=== PATIENT | female | born 1950 | race Caucasian/White ===

== ENCOUNTER 2019-03-12 17:31 | Observation (INO) ==
[2019-03-12] MEDS ORDERED: 0.9 % Sodium Chloride 1,000 ML IV ONE (18:16)
[2019-03-12 18:43] LABS: Bilirubin,Urine Small (Negative); Blood,Urine Large (Negative); Clarity,Urine Turbid (Clear); Glucose,Urine (UA) Normal (Normal); Ketones,Urine Trace mg/dL (Negative); Leukocyte Esterase,Urine Large (Negative); Nitrite,Urine Negative (Negative); PH,Urine 5.5 pH Units (5.0-8.0); Protein,Urine 100 mg/dL (Neg-Trace); Specific Gravity,Urine 1.025 (1.010-1.025); Urobilinogen,Urine Normal (Normal)
[2019-03-12 18:51] LABS: Color,Urine Light Yellow (Yellow)
[2019-03-12 18:54] LABS: RBC,Urine TNTC per hpf (0-3); WBC,Urine TNTC per hpf (0-3)
[2019-03-12 18:57] LABS: Bacteria,Urine Many per hpf (None-Few)
[2019-03-12] MEDS ORDERED: 0.9 % Sodium Chloride 500 ML ONE (19:01)
[2019-03-12 19:19] LABS: Basophils # 0.1 K/mcL (0.0-0.2); Basophils % 0.3 %; Hematocrit 43.1 % (35.3-44.9); Hemoglobin 13.3 g/dL (11.5-15.4); Lymphocytes # 0.8 K/mcL (0.6-4.6); Lymphocytes % 2.9 %; Mean Corpuscular HGB Conc 30.9 g/dL (31.6-35.5); Mean Corpuscular Hemoglobin 27.8 pg (28.0-33.3); Mean Corpuscular Volume 90.2 fL (83.0-100.0); Mean Platelet Volume 9.4 fL (9.4-12.4); Monocytes # 1.2 K/mcL (0.0-1.3); Monocytes % 4.6 %; Neutrophils # 24.3 K/mcL (1.6-8.9); Platelet Count 406 K/mcL (140-400); Red Blood Count 4.78 M/mcL (3.82-4.97); Red Cell Distribution Width 15.4 % (11.5-14.5); Segmented Neutrophils % 91.2 %; White Blood Count 26.6 K/mcL (4.3-11.1)
[2019-03-12 19:36] LABS: Platelet Estimate Increased (Normal)
[2019-03-12] MEDS ORDERED: cefTRIAXone 1,000 MG in 0.9 % Sodium Chloride Mini Bag 100 ML IVPB ONE (19:39)
[2019-03-12 19:40] LABS: Troponin I 0.03 ng/mL (< 0.04)
[2019-03-12 19:51] LABS: Albumin 3.3 g/dL (3.5-5.7); Albumin/Globulin Ratio 0.6 (1.1-2.2); Bilirubin,Total 0.3 mg/dL (0.3-1.0); Calcium 9.1 mg/dL (8.6-10.3); Globulin 5.2 g/dL (2.4-3.5); Total Protein 8.5 g/dL (6.4-8.9)
[2019-03-12] MEDS ORDERED: Ondansetron 4 MG/2 ML VIAL IVP PRN (21:23)
[2019-03-12] MEDS ORDERED: Naloxone 0.4 MG/ML INJ IVP PRN (21:23)
[2019-03-12] MEDS: 0.9 % Sodium Chloride 1,000 ML IVC SCH (22:18)
[2019-03-13] MEDS ORDERED: ALPRAZolam 1 MG TABLET PO ONE (02:09)
[2019-03-13] MEDS ORDERED: Acetaminophen 325 MG TABLET PO PRN (04:39)
[2019-03-13] MEDS: 0.9 % Sodium Chloride 1,000 ML IVC SCH (05:58)
[2019-03-13 07:49] LABS: Basophils # 0.1 K/mcL (0.0-0.2); Basophils % 0.3 %; Eosinophils % 0.1 %; Hematocrit 30.7 % (35.3-44.9); Hemoglobin 9.9 g/dL (11.5-15.4); Immature Granulocytes % 1.1 % (0-4); Lymphocytes % 4.5 %; Mean Corpuscular HGB Conc 32.2 g/dL (31.6-35.5); Mean Corpuscular Hemoglobin 27.7 pg (28.0-33.3); Mean Corpuscular Volume 85.8 fL (83.0-100.0); Mean Platelet Volume 9.6 fL (9.4-12.4); Monocytes # 1.1 K/mcL (0.0-1.3); Monocytes % 5.8 %; Neutrophils # 16.6 K/mcL (1.6-8.9); Platelet Count 371 K/mcL (140-400); Red Blood Count 3.58 M/mcL (3.82-4.97); Red Cell Distribution Width 15.3 % (11.5-14.5); Segmented Neutrophils % 88.2 %; White Blood Count 18.8 K/mcL (4.3-11.1)
[2019-03-13 07:50] LABS: Lymphocytes # 0.9 K/mcL (0.6-4.6)
[2019-03-13] MEDS ORDERED: 0.9 % Sodium Chloride 500 ML IV ONE (07:51)
[2019-03-13 08:05] LABS: Albumin 2.4 g/dL (3.5-5.7); Albumin/Globulin Ratio 0.6 (1.1-2.2); Bilirubin,Total 0.3 mg/dL (0.3-1.0); Calcium 7.9 mg/dL (8.6-10.3); Globulin 4.1 g/dL (2.4-3.5); Potassium 3.1 mEq/L (3.5-5.1); Total Protein 6.5 g/dL (6.4-8.9)
[2019-03-13] MEDS: ALPRAZolam 1 MG TABLET PO SCH ×2 (08:18→15:39)
[2019-03-13] MEDS: Gabapentin 100 MG CAPSULE PO SCH ×2 (08:18→15:39)
[2019-03-13] MEDS ORDERED: Sodium Bicarbonate 75 MEQ in D5% in 0.45% NACL 1,000 ML IVC SCH (11:15)
[2019-03-13 14:20] VITALS: BP 131/78
[2019-03-13] MEDS ORDERED: cefTRIAXone 1,000 MG in Water for inj. (sterile) 10 ML IVP SCH (19:00)
[2019-03-13] MEDS ORDERED: rOPINIRole 1 MG TABLET PO SCH (21:00)
== END 2019-03-13 17:30 | disposition critical access hospital (66) ==
LOC: EMEROOPIK 17:31 → INPPIK 17:31
PROVIDERS: ADMIT Family Medicine; ATTEND Family Medicine

== ENCOUNTER 2019-03-22 15:37 | Inpatient (IN) ==
[2019-03-22] MEDS ORDERED: DiphenhydraMINE CREAM 28.4 GM TUBE TP PRN (20:21)
[2019-03-22] MEDS: Amoxicillin 500 MG CAPSULE PO SCH (21:15)
[2019-03-22] MEDS: Gabapentin 300 MG CAPSULE PO SCH (21:15)
[2019-03-22] MEDS: ALPRAZolam 1 MG TABLET PO SCH (21:15)
[2019-03-22] MEDS: rOPINIRole 1 MG TABLET PO SCH (21:15)
[2019-03-23 06:49] LABS: Basophils % 0.4 %; Eosinophils # 0.3 K/mcL (0.0-0.6); Eosinophils % 2.7 %; Hematocrit 30.5 % (35.3-44.9); Hemoglobin 9.5 g/dL (11.5-15.4); Immature Granulocytes % 5.4 % (0-4); Lymphocytes # 1.4 K/mcL (0.6-4.6); Lymphocytes % 12.5 %; Mean Corpuscular HGB Conc 31.1 g/dL (31.6-35.5); Mean Corpuscular Hemoglobin 27.6 pg (28.0-33.3); Mean Corpuscular Volume 88.7 fL (83.0-100.0); Mean Platelet Volume 9.8 fL (9.4-12.4); Monocytes # 0.8 K/mcL (0.0-1.3); Monocytes % 7.4 %; Platelet Count 263 K/mcL (140-400); Red Blood Count 3.44 M/mcL (3.82-4.97); Red Cell Distribution Width 15.8 % (11.5-14.5); Segmented Neutrophils % 71.6 %; White Blood Count 11.2 K/mcL (4.3-11.1)
[2019-03-23 06:59] LABS: INR 1.2; Prothrombin Time 13.5 Seconds (9.4-12.1)
[2019-03-23 07:02] LABS: Activated Partial Thrombo Time 27.6 Seconds (26.0-36.0)
[2019-03-23 07:08] LABS: Calcium 7.9 mg/dL (8.6-10.3); Potassium 3.9 mEq/L (3.5-5.1)
[2019-03-23] MEDS: Gabapentin 300 MG CAPSULE PO SCH ×3 (09:35→20:47)
[2019-03-23] MEDS: Amoxicillin 500 MG CAPSULE PO SCH ×2 (09:40→20:46)
[2019-03-23] MEDS ORDERED: Acetaminophen 325 MG TABLET PO PRN (09:48)
[2019-03-23] MEDS: rOPINIRole 1 MG TABLET PO SCH (20:46)
[2019-03-23] MEDS: ALPRAZolam 1 MG TABLET PO SCH (20:46)
[2019-03-23] MEDS ORDERED: Furosemide 20 MG/2 ML VIAL IVP SCH (21:00)
[2019-03-24] MEDS: Gabapentin 300 MG CAPSULE PO SCH ×3 (08:57→20:17)
[2019-03-24] MEDS: Amoxicillin 500 MG CAPSULE PO SCH ×2 (09:16→20:17)
[2019-03-24] MEDS: Ondansetron ODT 4 MG TAB.RAPDIS SL PRN (09:16)
[2019-03-24] MEDS: rOPINIRole 1 MG TABLET PO SCH (20:17)
[2019-03-24] MEDS: ALPRAZolam 1 MG TABLET PO SCH (20:17)
[2019-03-25] MEDS: Gabapentin 300 MG CAPSULE PO SCH ×3 (08:33→21:16)
[2019-03-25 08:48] LABS: Hematocrit 31.6 % (35.3-44.9); Hemoglobin 9.8 g/dL (11.5-15.4); Mean Corpuscular Hemoglobin 28.2 pg (28.0-33.3); Mean Corpuscular Volume 91.1 fL (83.0-100.0); Mean Platelet Volume 9.7 fL (9.4-12.4); Platelet Count 311 K/mcL (140-400); Red Blood Count 3.47 M/mcL (3.82-4.97); White Blood Count 11.7 K/mcL (4.3-11.1)
[2019-03-25] MEDS: Amoxicillin 500 MG CAPSULE PO SCH ×2 (08:59→21:16)
[2019-03-25 09:01] LABS: Calcium 8.1 mg/dL (8.6-10.3)
[2019-03-25] MEDS: rOPINIRole 1 MG TABLET PO SCH (21:16)
[2019-03-25] MEDS: ALPRAZolam 1 MG TABLET PO SCH (21:16)
[2019-03-25] MEDS: Acetaminophen 325 MG TABLET PO PRN (21:17)
[2019-03-26] MEDS: Gabapentin 300 MG CAPSULE PO SCH ×3 (08:52→21:00)
[2019-03-26] MEDS: Amoxicillin 500 MG CAPSULE PO SCH ×2 (08:52→21:00)
[2019-03-26] MEDS: ALPRAZolam 1 MG TABLET PO SCH (21:00)
[2019-03-26] MEDS: rOPINIRole 1 MG TABLET PO SCH (21:01)
[2019-03-26] MEDS: Acetaminophen 325 MG TABLET PO PRN (21:38)
[2019-03-27] MEDS: Ondansetron ODT 4 MG TAB.RAPDIS SL PRN (00:34)
[2019-03-27 06:53] LABS: Potassium 4.5 mEq/L (3.5-5.1)
[2019-03-27] MEDS: Gabapentin 300 MG CAPSULE PO SCH ×3 (08:36→20:53)
[2019-03-27] MEDS: rOPINIRole 1 MG TABLET PO SCH (20:53)
[2019-03-27] MEDS: Acetaminophen 325 MG TABLET PO PRN (20:53)
[2019-03-28] MEDS: Gabapentin 300 MG CAPSULE PO SCH ×3 (09:25→20:24)
[2019-03-28] MEDS: Acetaminophen 325 MG TABLET PO PRN (09:25)
[2019-03-28] MEDS: rOPINIRole 1 MG TABLET PO SCH (20:24)
[2019-03-29] MEDS: ALPRAZolam 1 MG TABLET PO PRN ×2 (02:36→20:45)
[2019-03-29] MEDS: Gabapentin 300 MG CAPSULE PO SCH ×3 (08:11→20:45)
[2019-03-29] MEDS: Acetaminophen 325 MG TABLET PO PRN (08:11)
[2019-03-29] MEDS: rOPINIRole 1 MG TABLET PO SCH (20:45)
[2019-03-30 06:53] VITALS: BP 109/71
[2019-03-30] MEDS: Acetaminophen 325 MG TABLET PO PRN (08:16)
[2019-03-30] MEDS: Gabapentin 300 MG CAPSULE PO SCH (08:16)
[2019-03-30 09:55] LABS: Basophils # 0.1 K/mcL (0.0-0.2); Basophils % 0.9 %; Eosinophils # 0.2 K/mcL (0.0-0.6); Eosinophils % 2.1 %; Hematocrit 29.7 % (35.3-44.9); Hemoglobin 9.1 g/dL (11.5-15.4); Immature Granulocytes % 1.6 % (0-4); Lymphocytes # 1.6 K/mcL (0.6-4.6); Lymphocytes % 17.4 %; Mean Corpuscular HGB Conc 30.6 g/dL (31.6-35.5); Mean Corpuscular Hemoglobin 28.1 pg (28.0-33.3); Mean Corpuscular Volume 91.7 fL (83.0-100.0); Mean Platelet Volume 9.6 fL (9.4-12.4); Monocytes # 0.4 K/mcL (0.0-1.3); Monocytes % 4.5 %; Neutrophils # 6.7 K/mcL (1.6-8.9); Platelet Count 282 K/mcL (140-400); Red Blood Count 3.24 M/mcL (3.82-4.97); Red Cell Distribution Width 15.9 % (11.5-14.5); Segmented Neutrophils % 73.5 %; White Blood Count 9.2 K/mcL (4.3-11.1)
[2019-03-30 10:09] LABS: Calcium 8.2 mg/dL (8.6-10.3); Potassium 4.1 mEq/L (3.5-5.1)
== END 2019-03-30 12:30 | disposition home health service (06) | DRG 684 ==
LOC: INPPIK 17:59
PROVIDERS: ADMIT Family Medicine; ATTEND Family Medicine

== ENCOUNTER 2020-01-07 16:44 | Observation (INO) ==
[2020-01-07 17:41] LABS: Bilirubin,Urine Negative (Negative); Blood,Urine Small (Negative); Clarity,Urine Clear (Clear); Glucose,Urine (UA) Normal (Normal); Ketones,Urine 15 mg/dL (Negative); Leukocyte Esterase,Urine Small (Negative); Nitrite,Urine Negative (Negative); Protein,Urine Negative (Neg-Trace); Specific Gravity,Urine 1.015 (1.010-1.025); Urobilinogen,Urine Normal (Normal)
[2020-01-07 17:50] LABS: Color,Urine Light Yellow (Yellow)
[2020-01-07 17:50] LABS: Basophils # 0.1 K/mcL (0.0-0.2); Basophils % 0.6 %; Eosinophils # 0.3 K/mcL (0.0-0.6); Hematocrit 37.7 % (35.3-44.9); Hemoglobin 12.3 g/dL (11.5-15.4); Immature Granulocytes % 1.7 % (0-4); Lymphocytes # 1.2 K/mcL (0.6-4.6); Lymphocytes % 12.1 %; Mean Corpuscular HGB Conc 32.6 g/dL (31.6-35.5); Mean Corpuscular Hemoglobin 31.9 pg (28.0-33.3); Mean Corpuscular Volume 97.9 fL (83.0-100.0); Mean Platelet Volume 10.7 fL (9.4-12.4); Monocytes # 0.7 K/mcL (0.0-1.3); Monocytes % 6.8 %; Neutrophils # 7.6 K/mcL (1.6-8.9); Platelet Count 164 K/mcL (140-400); Red Blood Count 3.85 M/mcL (3.82-4.97); Red Cell Distribution Width 12.3 % (11.5-14.5); Segmented Neutrophils % 75.8 %; White Blood Count 10.1 K/mcL (4.3-11.1)
[2020-01-07 17:51] LABS: Hyaline Casts,Urine Few per lpf (None Seen); Mucus,Urine Few per lpf (None-Few); Squamous Epithelial Cell,Urine Few per hpf (None-Few)
[2020-01-07 18:10] LABS: Albumin 3.4 g/dL (3.5-5.7); Albumin/Globulin Ratio 1.1 (1.1-2.2); Bilirubin,Total 0.3 mg/dL (0.3-1.0); Calcium 8.5 mg/dL (8.6-10.3); Globulin 3.2 g/dL (2.4-3.5); Potassium 3.6 mEq/L (3.5-5.1); Total Protein 6.6 g/dL (6.4-8.9)
[2020-01-07] MEDS ORDERED: 0.9 % Sodium Chloride 1,000 ML IV ONE (19:10)
[2020-01-07] MEDS ORDERED: cefTRIAXone 1,000 MG in 0.9 % Sodium Chloride Mini Bag 100 ML IVPB ONE (19:10)
[2020-01-07 19:51] LABS: Adenovirus Not Detected (Not Detect); Bordetella Pertussis Not Detected (Not Detect); Chlamydophila pneumoniae Not Detected (Not Detect); Coronavirus 229E Not Detected (Not Detect); Coronavirus HKU1 Not Detected (Not Detect); Coronavirus NL63 Not Detected (Not Detect); Coronavirus OC43 Not Detected (Not Detect); Human Metapneumovirus Not Detected (Not Detect); Human Rhinovirus/Enterovirus Not Detected (Not Detect); Influenza A Subtype 2009 H1 Not Detected (Not Detect); Influenza B Not Detected (Not Detect); Mycoplasma pneumoniae Not Detected (Not Detect); Parainfluenza Virus 1 Not Detected (Not Detect); Parainfluenza Virus 2 Not Detected (Not Detect); Parainfluenza Virus 3 Not Detected (Not Detect); Parainfluenza Virus 4 Not Detected (Not Detect); Respiratory Syncytial Virus Not Detected (Not Detect); SARS-CoV-2 Not Detected (Not Detect)
[2020-01-07] MEDS ORDERED: *HR* HYDROcodone/Acet 5/325 mg TABLET PO PRN (22:27)
[2020-01-07] MEDS ORDERED: Melatonin 3 MG TABLET PO PRN (22:27)
[2020-01-07] MEDS ORDERED: Naloxone 0.4 MG/ML INJ IVP PRN (22:27)
[2020-01-07] MEDS ORDERED: 0.9 % Sodium Chloride 1,000 ML IVC SCH (22:27)
[2020-01-08] MEDS ORDERED: Acetaminophen 325 MG TABLET PO PRN (00:01)
[2020-01-08 07:05] LABS: Hematocrit 33.3 % (35.3-44.9); Hemoglobin 10.9 g/dL (11.5-15.4); Mean Corpuscular HGB Conc 32.7 g/dL (31.6-35.5); Mean Corpuscular Hemoglobin 32.2 pg (28.0-33.3); Mean Corpuscular Volume 98.2 fL (83.0-100.0); Platelet Count 223 K/mcL (140-400); Red Blood Count 3.39 M/mcL (3.82-4.97); Red Cell Distribution Width 12.3 % (11.5-14.5); White Blood Count 9.9 K/mcL (4.3-11.1)
[2020-01-08 07:23] LABS: Calcium 7.6 mg/dL (8.6-10.3); Potassium 3.3 mEq/L (3.5-5.1)
[2020-01-08] MEDS ORDERED: SUMAtriptan 6 MG/0.5 ML SQ ONE ×2 (07:53→14:45)
[2020-01-08] MEDS ORDERED: 0.9 % Sodium Chloride 1,000 ML IVC SCH (08:00)
[2020-01-08] MEDS ORDERED: Metoprolol XL (24 HR) Succ 50 MG TAB.ER.24H PO SCH (09:00)
[2020-01-08] MEDS: ALPRAZolam 1 MG TABLET PO PRN ×2 (09:14→15:04)
[2020-01-08] MEDS ORDERED: Ketorolac 30 MG/ML VIAL IVP ONE (09:48)
[2020-01-08] MEDS ORDERED: *HR* Promethazine 25 MG/ML VIAL IM ONE (09:48)
[2020-01-08] MEDS ORDERED: rOPINIRole 1 MG TABLET PO STA (14:40)
[2020-01-08] MEDS ORDERED: 0.9 % Sodium Chloride 1,000 ML IV ONE (14:44)
[2020-01-08 18:40] VITALS: BP 166/91
[2020-01-08] MEDS ORDERED: cefTRIAXone 1,000 MG in 0.9 % Sodium Chloride Mini Bag 100 ML IVPB ONE (20:20)
== END 2020-01-08 18:38 | disposition other institution (70) ==
LOC: INPPIK 16:44 → EMEROOPIK 16:44 → INPPIK 21:23
PROVIDERS: ADMIT Family Medicine; ATTEND Family Medicine

== ENCOUNTER 2020-01-08 17:14 | Inpatient (IN) ==
[2020-01-08] MEDS ORDERED: 0.9 % Sodium Chloride 1,000 ML IVC SCH (20:30)
[2020-01-08] MEDS: ALPRAZolam 1 MG TABLET PO PRN (20:40)
[2020-01-08] MEDS: *HR* OxyCODONE/APAP 5/325 TABLET PO PRN (20:41)
[2020-01-08] MEDS: rOPINIRole 1 MG TABLET PO SCH (20:53)
[2020-01-08] MEDS: Cefepime HCl 1,000 MG in 0.9 % Sodium Chloride Mini Bag 100 ML IVPB SCH (20:56)
[2020-01-08] MEDS ORDERED: cefTRIAXone 1,000 MG in Water for inj. (sterile) 10 ML IVP SCH (21:00)
[2020-01-08] MEDS ORDERED: Naloxone 0.4 MG/ML INJ IVP PRN (23:39)
[2020-01-08] MEDS: Acetaminophen 325 MG TABLET PO PRN (23:48)
[2020-01-09] MEDS: SUMAtriptan succinate 25 MG TABLET PO PRN ×3 (01:34→18:34)
[2020-01-09] MEDS: Acetaminophen 325 MG TABLET PO PRN ×2 (06:23→22:23)
[2020-01-09] MEDS: ALPRAZolam 1 MG TABLET PO PRN ×2 (06:23→18:40)
[2020-01-09 06:47] LABS: Basophils # 0.1 K/mcL (0.0-0.2); Basophils % 0.6 %; Eosinophils # 0.2 K/mcL (0.0-0.6); Eosinophils % 2.5 %; Hematocrit 31.1 % (35.3-44.9); Hemoglobin 10.2 g/dL (11.5-15.4); Immature Granulocytes % 1.6 % (0-4); Lymphocytes # 1.4 K/mcL (0.6-4.6); Lymphocytes % 15.7 %; Mean Corpuscular HGB Conc 32.8 g/dL (31.6-35.5); Mean Corpuscular Hemoglobin 32.7 pg (28.0-33.3); Mean Corpuscular Volume 99.7 fL (83.0-100.0); Mean Platelet Volume 9.3 fL (9.4-12.4); Monocytes # 0.6 K/mcL (0.0-1.3); Monocytes % 6.3 %; Neutrophils # 6.4 K/mcL (1.6-8.9); Platelet Count 197 K/mcL (140-400); Red Blood Count 3.12 M/mcL (3.82-4.97); Red Cell Distribution Width 12.6 % (11.5-14.5); Segmented Neutrophils % 73.3 %; White Blood Count 8.7 K/mcL (4.3-11.1)
[2020-01-09 07:05] LABS: Calcium 6.9 mg/dL (8.6-10.3); Potassium 3.2 mEq/L (3.5-5.1)
[2020-01-09] MEDS: *HR* OxyCODONE/APAP 5/325 TABLET PO PRN (08:10)
[2020-01-09] MEDS: Metoprolol XL (24 HR) Succ 50 MG TAB.ER.24H PO SCH (08:10)
[2020-01-09] MEDS: Cefepime HCl 1,000 MG in 0.9 % Sodium Chloride Mini Bag 100 ML IVPB SCH ×2 (08:11→20:11)
[2020-01-09] MEDS ORDERED: CefTRIAXone 1,000 MG VIAL IVPB SCH (09:00)
[2020-01-09 09:38] LABS: % Iron Saturation 28 % (15-50); Iron 43 mcg/dL (50-170); Transferrin 110 mg/dL (203-362)
[2020-01-09] MEDS: rOPINIRole 1 MG TABLET PO SCH (20:11)
[2020-01-10] MEDS: SUMAtriptan succinate 25 MG TABLET PO PRN ×3 (02:10→19:53)
[2020-01-10] MEDS: Acetaminophen 325 MG TABLET PO PRN (04:21)
[2020-01-10] MEDS: Cefepime HCl 1,000 MG in 0.9 % Sodium Chloride Mini Bag 100 ML IVPB SCH (08:24)
[2020-01-10] MEDS: Metoprolol XL (24 HR) Succ 50 MG TAB.ER.24H PO SCH (08:31)
[2020-01-10] MEDS: ALPRAZolam 1 MG TABLET PO PRN ×3 (08:31→21:37)
[2020-01-10] MEDS: lisinopriL 5 MG TABLET PO SCH (09:29)
[2020-01-10] MEDS ORDERED: 0.9 % Sodium Chloride 1,000 ML IVC SCH (12:00)
[2020-01-10 12:39] LABS: Calcium 7.3 mg/dL (8.6-10.3); Magnesium 1.4 mg/dL (1.6-2.6); Potassium 3.3 mEq/L (3.5-5.1)
[2020-01-10] MEDS: 0.9 % Sodium Chloride 1,000 ML IVC SCH ×2 (13:09→21:37)
[2020-01-10] MEDS ORDERED: Acetaminophen IV 1,000 MG/100 ML INFUS..BTL IVPB ONE (16:18)
[2020-01-10] MEDS: rOPINIRole 1 MG TABLET PO SCH (19:53)
[2020-01-11] MEDS ORDERED: Ringers Solution, Lactated 1,000 ML IVC ONE (03:58)
[2020-01-11 05:35] LABS: Basophils % 0.1 %; Eosinophils # 0.2 K/mcL (0.0-0.6); Eosinophils % 1.5 %; Hemoglobin 12.2 g/dL (11.5-15.4); Immature Granulocytes % 2.9 % (0-4); Lymphocytes # 1.3 K/mcL (0.6-4.6); Lymphocytes % 11.4 %; Mean Corpuscular Hemoglobin 32.3 pg (28.0-33.3); Mean Corpuscular Volume 97.9 fL (83.0-100.0); Monocytes # 0.8 K/mcL (0.0-1.3); Neutrophils # 8.9 K/mcL (1.6-8.9); Platelet Count 184 K/mcL (140-400); Red Blood Count 3.78 M/mcL (3.82-4.97); Red Cell Distribution Width 12.7 % (11.5-14.5); Segmented Neutrophils % 77.1 %; White Blood Count 11.5 K/mcL (4.3-11.1)
[2020-01-11 06:23] LABS: Calcium 7.7 mg/dL (8.6-10.3); Magnesium 2.2 mg/dL (1.6-2.6); Potassium 3.7 mEq/L (3.5-5.1)
[2020-01-11 07:05] LABS: Bilirubin,Urine Negative (Negative); Blood,Urine Moderate (Negative); Clarity,Urine Slightly Cloudy (Clear); Glucose,Urine (UA) Normal (Normal); Ketones,Urine 15 mg/dL (Negative); Leukocyte Esterase,Urine Moderate (Negative); Nitrite,Urine Negative (Negative); Protein,Urine Negative (Neg-Trace); Urobilinogen,Urine Normal (Normal)
[2020-01-11 07:13] LABS: Color,Urine Straw (Yellow)
[2020-01-11 07:28] LABS: WBC,Urine 30-50 per hpf (0-3)
[2020-01-11] MEDS: Metoprolol XL (24 HR) Succ 50 MG TAB.ER.24H PO SCH (07:30)
[2020-01-11] MEDS: lisinopriL 5 MG TABLET PO SCH (07:31)
[2020-01-11 07:34] LABS: Squamous Epithelial Cell,Urine Few per hpf (None-Few)
[2020-01-11 07:36] LABS: Renal Epithelial Cells,Urine Few per hpf (None-Few); Transitional Epi Cells,Urine Few per hpf (None-Few)
[2020-01-11 07:38] LABS: Bacteria,Urine Moderate per hpf (None-Few)
[2020-01-11] MEDS: SUMAtriptan succinate 25 MG TABLET PO PRN (07:55)
[2020-01-11] MEDS: ALPRAZolam 1 MG TABLET PO PRN (13:51)
[2020-01-11] MEDS: Piperacillin/Tazobactam 3.375 GM in 0.9 % Sodium Chloride Mini Bag 100 ML IVPB SCH ×2 (15:54→23:25)
[2020-01-11] MEDS: rOPINIRole 1 MG TABLET PO SCH (19:56)
[2020-01-11] MEDS: 0.9 % Sodium Chloride 1,000 ML IVC SCH (20:54)
[2020-01-12] MEDS: 0.9 % Sodium Chloride 1,000 ML IVC SCH ×2 (03:25→14:40)
[2020-01-12] MEDS: ALPRAZolam 1 MG TABLET PO PRN (06:32)
[2020-01-12] MEDS: Acetaminophen 325 MG TABLET PO PRN ×2 (06:32→20:05)
[2020-01-12 06:36] LABS: Hematocrit 33.7 % (35.3-44.9); Hemoglobin 11.2 g/dL (11.5-15.4); Mean Corpuscular HGB Conc 33.2 g/dL (31.6-35.5); Mean Corpuscular Hemoglobin 31.9 pg (28.0-33.3); Mean Platelet Volume 8.7 fL (9.4-12.4); Platelet Count 180 K/mcL (140-400); Red Blood Count 3.51 M/mcL (3.82-4.97); Red Cell Distribution Width 12.8 % (11.5-14.5)
[2020-01-12 06:52] LABS: Calcium 7.5 mg/dL (8.6-10.3); Magnesium 1.9 mg/dL (1.6-2.6); Potassium 3.2 mEq/L (3.5-5.1)
[2020-01-12] MEDS: lisinopriL 5 MG TABLET PO SCH (08:20)
[2020-01-12] MEDS: Metoprolol XL (24 HR) Succ 50 MG TAB.ER.24H PO SCH (08:20)
[2020-01-12] MEDS: Piperacillin/Tazobactam 3.375 GM in 0.9 % Sodium Chloride Mini Bag 100 ML IVPB SCH (08:21)
[2020-01-12] MEDS: D5% in Water 1,000 ML IVC SCH (14:39)
[2020-01-12] MEDS ORDERED: Piperacillin/Tazobactam 3.375 GM in 0.9 % Sodium Chloride Mini Bag 100 ML IVPB SCH (20:00)
[2020-01-12] MEDS: rOPINIRole 1 MG TABLET PO SCH (20:04)
[2020-01-12] MEDS: ALPRAZolam 0.5 MG TABLET PO PRN (20:05)
[2020-01-13] MEDS: D5% in Water 1,000 ML IVC SCH ×2 (05:32→19:08)
[2020-01-13 06:45] LABS: Basophils # 0.1 K/mcL (0.0-0.2); Basophils % 0.8 %; Eosinophils # 0.4 K/mcL (0.0-0.6); Eosinophils % 3.5 %; Hemoglobin 10.2 g/dL (11.5-15.4); Immature Granulocytes % 1.8 % (0-4); Lymphocytes % 19.1 %; Mean Corpuscular HGB Conc 32.9 g/dL (31.6-35.5); Mean Corpuscular Hemoglobin 31.9 pg (28.0-33.3); Mean Corpuscular Volume 96.9 fL (83.0-100.0); Monocytes # 1.1 K/mcL (0.0-1.3); Neutrophils # 6.8 K/mcL (1.6-8.9); Platelet Count 199 K/mcL (140-400); Red Cell Distribution Width 13.1 % (11.5-14.5); Segmented Neutrophils % 64.8 %; White Blood Count 10.5 K/mcL (4.3-11.1)
[2020-01-13 07:03] LABS: Calcium 7.1 mg/dL (8.6-10.3); Potassium 3.6 mEq/L (3.5-5.1)
[2020-01-13] MEDS: Acetaminophen 325 MG TABLET PO PRN (08:47)
[2020-01-13] MEDS: lisinopriL 5 MG TABLET PO SCH (08:47)
[2020-01-13] MEDS: ALPRAZolam 0.5 MG TABLET PO PRN ×2 (08:48→22:07)
[2020-01-13] MEDS: Metoprolol XL (24 HR) Succ 50 MG TAB.ER.24H PO SCH (08:48)
[2020-01-13 18:52] VITALS: BP 161/82
[2020-01-13] MEDS: *HR* OxyCODONE/APAP 5/325 TABLET PO PRN (22:07)
[2020-01-13] MEDS: rOPINIRole 1 MG TABLET PO SCH (22:08)
[2020-01-14 00:49] LABS: Adenovirus Not Detected (Not Detect); Coronavirus 229E Not Detected (Not Detect); Coronavirus HKU1 Not Detected (Not Detect); Coronavirus NL63 Not Detected (Not Detect); Coronavirus OC43 Not Detected (Not Detect)
[2020-01-14 00:56] LABS: Bordetella Pertussis Not Detected (Not Detect); Chlamydophila pneumoniae Not Detected (Not Detect); Human Metapneumovirus Not Detected (Not Detect); Human Rhinovirus/Enterovirus Not Detected (Not Detect); Influenza A Subtype 2009 H1 Not Detected (Not Detect); Influenza B Not Detected (Not Detect); Mycoplasma pneumoniae Not Detected (Not Detect); Parainfluenza Virus 1 Not Detected (Not Detect); Parainfluenza Virus 2 Not Detected (Not Detect); Parainfluenza Virus 3 Not Detected (Not Detect); Parainfluenza Virus 4 Not Detected (Not Detect); Respiratory Syncytial Virus Not Detected (Not Detect); SARS-CoV-2 DETECTED (Not Detect)
== END 2020-01-14 03:30 | disposition short-term general hospital (02) | DRG 689 ==
LOC: INPPIK 18:27
PROVIDERS: ADMIT Family Medicine; ATTEND Family Medicine

== ENCOUNTER 2020-04-18 16:35 | Inpatient (IN) ==
[2020-04-20] MEDS ORDERED: Ondansetron ODT 4 MG TAB.RAPDIS SL PRN (18:02)
[2020-04-20] MEDS: ALPRAZolam 1 MG TABLET PO PRN (21:01)
[2020-04-20] MEDS: Cefdinir 300 MG CAPSULE PO SCH (21:01)
[2020-04-20] MEDS: *HR* Heparin 5,000 UNIT/ML VIAL SQ SCH (21:02)
[2020-04-20] MEDS ORDERED: Acetaminophen 325 MG TABLET PO ONE (21:36)
[2020-04-21] MEDS: ALPRAZolam 1 MG TABLET PO PRN ×2 (03:54→16:55)
[2020-04-21] MEDS: *HR* Heparin 5,000 UNIT/ML VIAL SQ SCH ×3 (06:07→20:44)
[2020-04-21 06:45] LABS: Hematocrit 37.1 % (35.3-44.9); Hemoglobin 11.7 g/dL (11.5-15.4); Mean Corpuscular HGB Conc 31.5 g/dL (31.6-35.5); Mean Corpuscular Hemoglobin 31.3 pg (28.0-33.3); Mean Corpuscular Volume 99.2 fL (83.0-100.0); Mean Platelet Volume 9.7 fL (9.4-12.4); Platelet Count 180 K/mcL (140-400); Red Blood Count 3.74 M/mcL (3.82-4.97); Red Cell Distribution Width 13.3 % (11.5-14.5); White Blood Count 7.4 K/mcL (4.3-11.1)
[2020-04-21] MEDS: Acetaminophen 325 MG TABLET PO PRN ×2 (08:44→16:55)
[2020-04-21] MEDS: lisinopriL 20 MG TABLET PO SCH (08:45)
[2020-04-21] MEDS: SUMAtriptan succinate 25 MG TABLET PO PRN (08:45)
[2020-04-21] MEDS: Cefdinir 300 MG CAPSULE PO SCH ×2 (08:46→20:43)
[2020-04-21] MEDS ORDERED: Ergocalciferol (VIT D2) 50,000 UNIT (1.25MG) CAP PO SCH (09:00)
[2020-04-21] MEDS: Sennosides/Docusate Sodium TABLET PO SCH ×2 (09:58→20:43)
[2020-04-21] MEDS: Ringers Solution, Lactated 1,000 ML IVC SCH (15:43)
[2020-04-22] MEDS: ALPRAZolam 1 MG TABLET PO PRN ×2 (03:03→10:08)
[2020-04-22] MEDS: Ringers Solution, Lactated 1,000 ML IVC SCH (03:35)
[2020-04-22] MEDS: *HR* Heparin 5,000 UNIT/ML VIAL SQ SCH ×3 (05:36→21:51)
[2020-04-22] MEDS: SUMAtriptan succinate 25 MG TABLET PO PRN ×2 (05:36→10:08)
[2020-04-22 05:49] LABS: Basophils % 0.3 %; Eosinophils % 0.1 %; Hematocrit 35.6 % (35.3-44.9); Hemoglobin 11.3 g/dL (11.5-15.4); Immature Granulocytes % 1.6 % (0-4); Lymphocytes # 0.8 K/mcL (0.6-4.6); Mean Corpuscular HGB Conc 31.7 g/dL (31.6-35.5); Mean Corpuscular Volume 97.5 fL (83.0-100.0); Mean Platelet Volume 9.9 fL (9.4-12.4); Monocytes # 0.4 K/mcL (0.0-1.3); Monocytes % 6.5 %; Neutrophils # 5.5 K/mcL (1.6-8.9); Platelet Count 165 K/mcL (140-400); Red Blood Count 3.65 M/mcL (3.82-4.97); Red Cell Distribution Width 13.1 % (11.5-14.5); Segmented Neutrophils % 80.5 %; White Blood Count 6.8 K/mcL (4.3-11.1)
[2020-04-22 06:13] LABS: Albumin 2.7 g/dL (3.5-5.7); Albumin/Globulin Ratio 0.7 (1.1-2.2); Bilirubin,Total 0.2 mg/dL (0.3-1.0); Calcium 7.8 mg/dL (8.6-10.3); Globulin 3.8 g/dL (2.4-3.5); Potassium 4.2 mEq/L (3.5-5.1); Total Protein 6.5 g/dL (6.4-8.9)
[2020-04-22] MEDS: Acetaminophen 325 MG TABLET PO PRN ×3 (06:52→23:51)
[2020-04-22] MEDS ORDERED: Ondansetron ODT 4 MG TAB.RAPDIS SL PRN (08:47)
[2020-04-22] MEDS: Sennosides/Docusate Sodium TABLET PO SCH ×2 (08:49→21:51)
[2020-04-22] MEDS: lisinopriL 20 MG TABLET PO SCH (08:50)
[2020-04-22] MEDS: Cefdinir 300 MG CAPSULE PO SCH (08:50)
[2020-04-22] MEDS ORDERED: cefTRIAXone 2,000 MG in 0.9 % Sodium Chloride Mini Bag 100 ML IVPB SCH (15:00)
[2020-04-23] MEDS: *HR* Heparin 5,000 UNIT/ML VIAL SQ SCH ×3 (05:57→20:45)
[2020-04-23] MEDS: Acetaminophen 325 MG TABLET PO PRN ×2 (08:10→17:30)
[2020-04-23] MEDS: lisinopriL 20 MG TABLET PO SCH (08:11)
[2020-04-23] MEDS: Sennosides/Docusate Sodium TABLET PO SCH ×2 (08:12→20:45)
[2020-04-23] MEDS: 0.9 % Sodium Chloride 1,000 ML IVC SCH ×2 (08:12→20:46)
[2020-04-23 08:23] LABS: Basophils % 0.3 %; Eosinophils % 0.5 %; Hematocrit 38.1 % (35.3-44.9); Immature Granulocytes % 2.2 % (0-4); Lymphocytes # 0.8 K/mcL (0.6-4.6); Lymphocytes % 13.1 %; Mean Corpuscular HGB Conc 31.5 g/dL (31.6-35.5); Mean Corpuscular Hemoglobin 30.6 pg (28.0-33.3); Mean Corpuscular Volume 97.2 fL (83.0-100.0); Mean Platelet Volume 10.1 fL (9.4-12.4); Monocytes # 0.4 K/mcL (0.0-1.3); Neutrophils # 4.7 K/mcL (1.6-8.9); Platelet Count 165 K/mcL (140-400); Red Blood Count 3.92 M/mcL (3.82-4.97); Red Cell Distribution Width 13.2 % (11.5-14.5); Segmented Neutrophils % 77.9 %
[2020-04-23 08:36] LABS: Calcium 8.2 mg/dL (8.6-10.3); Potassium 4.1 mEq/L (3.5-5.1)
[2020-04-23] MEDS: levoFLOXacin 750 MG/150 ML 750 MG/150 ML BAG IVPB SCH (13:35)
[2020-04-23] MEDS: SUMAtriptan succinate 25 MG TABLET PO PRN (14:35)
[2020-04-23] MEDS: Ondansetron 4 MG/2 ML VIAL IVP PRN ×2 (17:05→20:51)
[2020-04-23] MEDS: ALPRAZolam 1 MG TABLET PO PRN (18:48)
[2020-04-23] MEDS ORDERED: Ketorolac 30 MG/ML VIAL IVP PRN (19:49)
[2020-04-24] MEDS: ALPRAZolam 1 MG TABLET PO PRN ×2 (05:34→20:16)
[2020-04-24] MEDS: *HR* Heparin 5,000 UNIT/ML VIAL SQ SCH ×3 (05:36→20:23)
[2020-04-24] MEDS: lisinopriL 20 MG TABLET PO SCH (08:01)
[2020-04-24] MEDS: Ondansetron 4 MG/2 ML VIAL IVP PRN (08:02)
[2020-04-24 08:04] LABS: Basophils % 0.4 %; Eosinophils % 0.2 %; Hemoglobin 11.3 g/dL (11.5-15.4); Immature Granulocytes % 3.3 % (0-4); Lymphocytes # 0.7 K/mcL (0.6-4.6); Lymphocytes % 14.4 %; Mean Corpuscular HGB Conc 32.3 g/dL (31.6-35.5); Mean Corpuscular Hemoglobin 31.1 pg (28.0-33.3); Mean Corpuscular Volume 96.4 fL (83.0-100.0); Mean Platelet Volume 9.8 fL (9.4-12.4); Monocytes # 0.2 K/mcL (0.0-1.3); Monocytes % 4.8 %; Neutrophils # 3.5 K/mcL (1.6-8.9); Platelet Count 167 K/mcL (140-400); Red Blood Count 3.63 M/mcL (3.82-4.97); Red Cell Distribution Width 13.1 % (11.5-14.5); Segmented Neutrophils % 76.9 %; White Blood Count 4.6 K/mcL (4.3-11.1)
[2020-04-24] MEDS: SUMAtriptan succinate 25 MG TABLET PO PRN (08:06)
[2020-04-24] MEDS: Sennosides/Docusate Sodium TABLET PO SCH ×2 (08:18→20:11)
[2020-04-24 08:19] LABS: Calcium 7.6 mg/dL (8.6-10.3); Potassium 4.1 mEq/L (3.5-5.1)
[2020-04-24] MEDS: 0.9 % Sodium Chloride 1,000 ML IVC SCH ×2 (09:44→20:16)
[2020-04-24] MEDS ORDERED: *HR* Promethazine 25 MG/ML VIAL IM PRN (13:07)
[2020-04-24] MEDS: Acetaminophen 325 MG TABLET PO PRN ×2 (15:04→23:13)
[2020-04-25] MEDS: *HR* Heparin 5,000 UNIT/ML VIAL SQ SCH ×3 (05:46→20:29)
[2020-04-25 07:40] LABS: Basophils % 0.4 %; Eosinophils % 0.2 %; Hemoglobin 11.1 g/dL (11.5-15.4); Immature Granulocytes % 1.9 % (0-4); Lymphocytes # 0.8 K/mcL (0.6-4.6); Lymphocytes % 15.5 %; Mean Corpuscular HGB Conc 30.8 g/dL (31.6-35.5); Mean Corpuscular Hemoglobin 30.6 pg (28.0-33.3); Mean Corpuscular Volume 99.2 fL (83.0-100.0); Mean Platelet Volume 9.6 fL (9.4-12.4); Monocytes # 0.2 K/mcL (0.0-1.3); Monocytes % 4.3 %; Neutrophils # 4.2 K/mcL (1.6-8.9); Platelet Count 197 K/mcL (140-400); Red Blood Count 3.63 M/mcL (3.82-4.97); Red Cell Distribution Width 13.1 % (11.5-14.5); Segmented Neutrophils % 77.7 %; White Blood Count 5.4 K/mcL (4.3-11.1)
[2020-04-25] MEDS: Acetaminophen 325 MG TABLET PO PRN (07:58)
[2020-04-25 08:00] LABS: Albumin 2.6 g/dL (3.5-5.7); Albumin/Globulin Ratio 0.7 (1.1-2.2); Bilirubin,Total 0.2 mg/dL (0.3-1.0); Calcium 7.8 mg/dL (8.6-10.3); Globulin 3.7 g/dL (2.4-3.5); Potassium 4.3 mEq/L (3.5-5.1); Total Protein 6.3 g/dL (6.4-8.9)
[2020-04-25] MEDS: Sennosides/Docusate Sodium TABLET PO SCH ×2 (08:00→20:37)
[2020-04-25] MEDS: lisinopriL 20 MG TABLET PO SCH (08:03)
[2020-04-25] MEDS: 0.9 % Sodium Chloride 1,000 ML IVC SCH ×2 (09:14→22:19)
[2020-04-25] MEDS ORDERED: Acetaminophen 325 MG TABLET PO PRN (10:13)
[2020-04-25] MEDS: Dexamethasone 4 MG/ML VIAL IVP SCH (10:13)
[2020-04-25 10:32] LABS: Magnesium 1.6 mg/dL (1.6-2.6); Phosphorous 3.1 mg/dL (2.7-4.5)
[2020-04-25] MEDS: levoFLOXacin 750 MG/150 ML 750 MG/150 ML BAG IVPB SCH (13:42)
[2020-04-25] MEDS: SUMAtriptan succinate 25 MG TABLET PO PRN (13:49)
[2020-04-25] MEDS: diazePAM 10 MG/2 ML SYRINGE IVP SCH (16:00)
[2020-04-26] MEDS: diazePAM 10 MG/2 ML SYRINGE IVP SCH ×2 (00:12→08:30)
[2020-04-26] MEDS: *HR* Heparin 5,000 UNIT/ML VIAL SQ SCH ×3 (05:34→22:06)
[2020-04-26] MEDS: Sennosides/Docusate Sodium TABLET PO SCH ×2 (08:15→20:10)
[2020-04-26] MEDS: Dexamethasone 4 MG/ML VIAL IVP SCH (08:29)
[2020-04-26] MEDS: lisinopriL 20 MG TABLET PO SCH (08:29)
[2020-04-26] MEDS: 0.9 % Sodium Chloride 1,000 ML IVC SCH ×2 (15:39→23:20)
[2020-04-26] MEDS ORDERED: diazePAM 5 MG TABLET PO ONE (21:00)
[2020-04-27] MEDS: Metoclopramide 10 MG/2 ML VIAL IVP PRN ×2 (04:14→10:16)
[2020-04-27] MEDS: *HR* Heparin 5,000 UNIT/ML VIAL SQ SCH (05:33)
[2020-04-27 05:37] LABS: ABG Base Excess -10 mEq/L (-2 to 3); ABG HCO3 15 mEq/L (21-27); ABG Oxygen Saturation 80 % (95-98); ABG PCO2 28 mmHg (35-45); ABG PH 7.33 pH Units (7.32-7.45); ABG PO2 47 mmHg (85-104); ABG TCO2 16 mEq/L (20-26)
[2020-04-27] MEDS ORDERED: diazePAM 5 MG TABLET PO ONE ×2 (05:49→21:00)
[2020-04-27 06:40] LABS: Basophils % 0.2 %; Hematocrit 32.6 % (35.3-44.9); Hemoglobin 10.5 g/dL (11.5-15.4); Immature Granulocytes % 2.8 % (0-4); Lymphocytes # 0.3 K/mcL (0.6-4.6); Lymphocytes % 2.6 %; Mean Corpuscular HGB Conc 32.2 g/dL (31.6-35.5); Mean Corpuscular Hemoglobin 31.3 pg (28.0-33.3); Mean Platelet Volume 9.9 fL (9.4-12.4); Monocytes # 0.3 K/mcL (0.0-1.3); Monocytes % 2.4 %; Neutrophils # 10.2 K/mcL (1.6-8.9); Platelet Count 243 K/mcL (140-400); Red Blood Count 3.36 M/mcL (3.82-4.97); Red Cell Distribution Width 13.4 % (11.5-14.5); White Blood Count 11.1 K/mcL (4.3-11.1)
[2020-04-27 07:07] LABS: Calcium 7.4 mg/dL (8.6-10.3); Potassium 3.7 mEq/L (3.5-5.1)
[2020-04-27] MEDS: Dexamethasone 4 MG/ML VIAL IVP SCH (08:44)
[2020-04-27] MEDS: Ondansetron 4 MG/2 ML VIAL IVP PRN (08:44)
[2020-04-27] MEDS: Sennosides/Docusate Sodium TABLET PO SCH (08:45)
[2020-04-27] MEDS: lisinopriL 20 MG TABLET PO SCH (08:45)
[2020-04-27 08:50] VITALS: BP 133/87
[2020-04-28] MEDS ORDERED: Ergocalciferol (VIT D2) 50,000 UNIT (1.25MG) CAP PO SCH (09:00)
== END 2020-04-27 11:03 | disposition short-term general hospital (02) | DRG 177 ==
LOC: INPPIK 04-20 16:40
PROVIDERS: ADMIT Family Medicine; ATTEND Family Medicine

== ENCOUNTER 2020-05-12 14:40 | Inpatient (IN) ==
[2020-05-12] MEDS ORDERED: SUMAtriptan succinate 25 MG TABLET PO PRN (14:46)
[2020-05-12] MEDS ORDERED: Ergocalciferol (VIT D2) 50,000 UNIT (1.25MG) CAP PO SCH (15:00)
[2020-05-12] MEDS: Acetaminophen 325 MG TABLET PO PRN (18:27)
[2020-05-12] MEDS: CRANBERRY 15000 MG PO SCH (21:20)
[2020-05-13] MEDS: ALPRAZolam 1 MG TABLET PO PRN ×3 (01:01→19:52)
[2020-05-13] MEDS: Acetaminophen 325 MG TABLET PO PRN ×3 (02:07→19:51)
[2020-05-13] MEDS ORDERED: Dextrose Gel 15 GM/37.5 ML TUBE PO PRN ×2 (03:03)
[2020-05-13] MEDS ORDERED: *HR* Dextrose 50 % in Water (Vial) 50 ML VIAL IVP PRN (03:03)
[2020-05-13] MEDS ORDERED: D5% in Water 1,000 ML IVC PRN (03:03)
[2020-05-13] MEDS ORDERED: Insulin LISPRO 300 UNITS/3 ML VIAL SUBQ SCH (06:00)
[2020-05-13] MEDS: Multivit/Ca/Min/Fe/FA 1 TAB TABLET PO SCH (08:01)
[2020-05-13] MEDS: Aspirin 81 MG TAB.CHEW PO SCH (08:01)
[2020-05-13] MEDS: dexAMETHasone 4 MG TABLET PO SCH (08:02)
[2020-05-13] MEDS: Cholecalciferol (D-3) 1,000 UNIT (25MCG) TABLET PO SCH (08:02)
[2020-05-13] MEDS: CRANBERRY 15000 MG PO SCH ×2 (08:03→20:00)
[2020-05-13] MEDS: Metoprolol XL (24 HR) Succ 25 MG TAB.ER.24H PO SCH (08:03)
[2020-05-13] MEDS: lisinopriL 5 MG TABLET PO SCH (08:03)
[2020-05-13] MEDS: *HR* Enoxaparin 40 MG/0.4 ML SYRINGE SQ SCH (13:17)
[2020-05-13] MEDS ORDERED: Fluconazole 150 MG TABLET PO ONE (15:12)
[2020-05-14] MEDS: Acetaminophen 325 MG TABLET PO PRN ×2 (02:07→21:26)
[2020-05-14] MEDS: ALPRAZolam 1 MG TABLET PO PRN ×2 (02:08→21:25)
[2020-05-14] MEDS: *HR* Enoxaparin 40 MG/0.4 ML SYRINGE SQ SCH (04:33)
[2020-05-14] MEDS: Metoprolol XL (24 HR) Succ 25 MG TAB.ER.24H PO SCH (07:22)
[2020-05-14] MEDS: lisinopriL 5 MG TABLET PO SCH (08:29)
[2020-05-14] MEDS: Aspirin 81 MG TAB.CHEW PO SCH (08:32)
[2020-05-14] MEDS: Cholecalciferol (D-3) 1,000 UNIT (25MCG) TABLET PO SCH (08:32)
[2020-05-14] MEDS: Multivit/Ca/Min/Fe/FA 1 TAB TABLET PO SCH (08:32)
[2020-05-14] MEDS: dexAMETHasone 4 MG TABLET PO SCH (08:33)
[2020-05-14] MEDS: CRANBERRY 15000 MG PO SCH ×2 (08:33→21:14)
[2020-05-15] MEDS: ALPRAZolam 1 MG TABLET PO PRN ×3 (03:01→18:55)
[2020-05-15] MEDS: Acetaminophen 325 MG TABLET PO PRN ×2 (04:14→18:55)
[2020-05-15] MEDS: *HR* Enoxaparin 40 MG/0.4 ML SYRINGE SQ SCH (05:48)
[2020-05-15] MEDS: Cholecalciferol (D-3) 1,000 UNIT (25MCG) TABLET PO SCH (09:24)
[2020-05-15] MEDS: Aspirin 81 MG TAB.CHEW PO SCH (09:24)
[2020-05-15] MEDS: Multivit/Ca/Min/Fe/FA 1 TAB TABLET PO SCH (09:24)
[2020-05-15] MEDS: dexAMETHasone 4 MG TABLET PO SCH (09:25)
[2020-05-15] MEDS: lisinopriL 5 MG TABLET PO SCH (09:26)
[2020-05-15] MEDS: CRANBERRY 15000 MG PO SCH ×2 (09:26→20:30)
[2020-05-15] MEDS: Metoprolol XL (24 HR) Succ 25 MG TAB.ER.24H PO SCH (09:26)
[2020-05-16] MEDS: ALPRAZolam 1 MG TABLET PO PRN ×2 (01:56→19:52)
[2020-05-16] MEDS: Acetaminophen 325 MG TABLET PO PRN ×2 (01:56→19:52)
[2020-05-16] MEDS: *HR* Enoxaparin 40 MG/0.4 ML SYRINGE SQ SCH (05:00)
[2020-05-16 08:47] LABS: Basophils % 0.1 %; Eosinophils # 0.1 K/mcL (0.0-0.6); Eosinophils % 1.3 %; Hematocrit 29.4 % (35.3-44.9); Hemoglobin 8.9 g/dL (11.5-15.4); Immature Granulocytes % 1.2 % (0-4); Lymphocytes # 0.9 K/mcL (0.6-4.6); Lymphocytes % 9.9 %; Mean Corpuscular HGB Conc 30.3 g/dL (31.6-35.5); Mean Corpuscular Volume 102.4 fL (83.0-100.0); Monocytes # 0.3 K/mcL (0.0-1.3); Monocytes % 3.6 %; Neutrophils # 7.5 K/mcL (1.6-8.9); Platelet Count 127 K/mcL (140-400); Red Blood Count 2.87 M/mcL (3.82-4.97); Red Cell Distribution Width 17.9 % (11.5-14.5); Segmented Neutrophils % 83.9 %
[2020-05-16 09:34] LABS: Calcium 8.5 mg/dL (8.6-10.3); Magnesium 1.3 mg/dL (1.6-2.6); Potassium 4.9 mEq/L (3.5-5.1)
[2020-05-16] MEDS: lisinopriL 5 MG TABLET PO SCH (09:56)
[2020-05-16] MEDS: Multivit/Ca/Min/Fe/FA 1 TAB TABLET PO SCH (09:56)
[2020-05-16] MEDS: Metoprolol XL (24 HR) Succ 25 MG TAB.ER.24H PO SCH (09:56)
[2020-05-16] MEDS: Aspirin 81 MG TAB.CHEW PO SCH (09:56)
[2020-05-16] MEDS: Cholecalciferol (D-3) 1,000 UNIT (25MCG) TABLET PO SCH (09:56)
[2020-05-16] MEDS: CRANBERRY 15000 MG PO SCH ×2 (09:57→19:54)
[2020-05-17] MEDS: ALPRAZolam 1 MG TABLET PO PRN ×2 (02:04→11:06)
[2020-05-17] MEDS: Acetaminophen 325 MG TABLET PO PRN ×2 (02:04→11:06)
[2020-05-17] MEDS: *HR* Enoxaparin 40 MG/0.4 ML SYRINGE SQ SCH (05:51)
[2020-05-17] MEDS ORDERED: *HR* HYDROcodone/Acet 5/325 mg TABLET PO ONE (06:39)
[2020-05-17] MEDS: CRANBERRY 15000 MG PO SCH ×2 (08:07→19:42)
[2020-05-17] MEDS: Multivit/Ca/Min/Fe/FA 1 TAB TABLET PO SCH (08:16)
[2020-05-17] MEDS: Cholecalciferol (D-3) 1,000 UNIT (25MCG) TABLET PO SCH (08:16)
[2020-05-17] MEDS: Aspirin 81 MG TAB.CHEW PO SCH (08:16)
[2020-05-17] MEDS: Metoprolol XL (24 HR) Succ 25 MG TAB.ER.24H PO SCH (09:46)
[2020-05-17] MEDS: lisinopriL 5 MG TABLET PO SCH (09:47)
[2020-05-17] MEDS ORDERED: Ringers Solution, Lactated 1,000 ML IVC ONE (13:16)
[2020-05-17] MEDS: *HR* OxyCODONE/APAP 10/325 TABLET PO PRN ×2 (15:19→22:20)
[2020-05-18] MEDS: *HR* Enoxaparin 40 MG/0.4 ML SYRINGE SQ SCH (05:40)
[2020-05-18 08:00] LABS: Alanine Aminotransferase 10 Units/L (7-52); Albumin 2.5 g/dL (3.5-5.7); Alkaline Phosphatase 53 Units/L (34-104); Aspartate Amino Transferase 11 Units/L (13-39); BUN/Creatinine Ratio 40 (6-26); Bilirubin,Total 0.3 mg/dL (0.3-1.0); Blood Urea Nitrogen 43 mg/dL (8-23); Calcium 7.7 mg/dL (8.6-10.3); Carbon Dioxide 19 mEq/L (23-29); Chloride 109 mEq/L (98-107); Globulin 2.6 g/dL (2.4-3.5); Glucose 123 mg/dL (70-105); Magnesium 1.6 mg/dL (1.6-2.6); Osmolality,Calculated 296 (280-300); Potassium 4.4 mEq/L (3.5-5.1); Sodium 137 mEq/L (136-145); Total Protein 5.1 g/dL (6.4-8.9); eGFR For African Americans > 60 (> 60); eGFR For Non-African Americans 51 (> 60)
[2020-05-18] MEDS: Cholecalciferol (D-3) 1,000 UNIT (25MCG) TABLET PO SCH (08:06)
[2020-05-18] MEDS: Metoprolol XL (24 HR) Succ 25 MG TAB.ER.24H PO SCH (08:06)
[2020-05-18] MEDS: Multivit/Ca/Min/Fe/FA 1 TAB TABLET PO SCH (08:06)
[2020-05-18] MEDS: Aspirin 81 MG TAB.CHEW PO SCH (08:06)
[2020-05-18] MEDS: *HR* OxyCODONE/APAP 10/325 TABLET PO PRN ×2 (09:55→17:41)
[2020-05-18] MEDS: CRANBERRY 15000 MG PO SCH ×2 (09:56→20:41)
[2020-05-19] MEDS: ALPRAZolam 1 MG TABLET PO PRN ×2 (03:45→20:09)
[2020-05-19] MEDS: *HR* Enoxaparin 40 MG/0.4 ML SYRINGE SQ SCH (05:27)
[2020-05-19 07:20] LABS: Bilirubin,Urine Negative (Negative); Blood,Urine Moderate (Negative); Clarity,Urine Cloudy (Clear); Color,Urine Yellow (Yellow); Glucose,Urine (UA) Normal (Normal); Ketones,Urine Negative (Negative); Leukocyte Esterase,Urine Large (Negative); Nitrite,Urine Negative (Negative); Protein,Urine 100 mg/dL (Neg-Trace); Urobilinogen,Urine Normal (Normal)
[2020-05-19] MEDS: CRANBERRY 15000 MG PO SCH ×2 (07:26→20:13)
[2020-05-19] MEDS: Aspirin 81 MG TAB.CHEW PO SCH (07:26)
[2020-05-19] MEDS: Multivit/Ca/Min/Fe/FA 1 TAB TABLET PO SCH (07:26)
[2020-05-19] MEDS: Metoprolol XL (24 HR) Succ 25 MG TAB.ER.24H PO SCH (07:26)
[2020-05-19] MEDS: Cholecalciferol (D-3) 1,000 UNIT (25MCG) TABLET PO SCH (07:26)
[2020-05-19] MEDS: *HR* OxyCODONE/APAP 10/325 TABLET PO PRN ×2 (07:26→15:51)
[2020-05-19 08:05] LABS: Bacteria,Urine Many per hpf (None-Few); Squamous Epithelial Cell,Urine Few per hpf (None-Few); WBC,Urine 30-50 per hpf (0-3)
[2020-05-19] MEDS: Nitrofurantoin (BID) 100 MG CAPSULE PO SCH (18:56)
[2020-05-20] MEDS: ALPRAZolam 1 MG TABLET PO PRN ×2 (04:33→21:04)
[2020-05-20] MEDS: *HR* Enoxaparin 40 MG/0.4 ML SYRINGE SQ SCH (05:48)
[2020-05-20] MEDS: Metoprolol XL (24 HR) Succ 25 MG TAB.ER.24H PO SCH (09:46)
[2020-05-20] MEDS: Aspirin 81 MG TAB.CHEW PO SCH (09:46)
[2020-05-20] MEDS: Multivit/Ca/Min/Fe/FA 1 TAB TABLET PO SCH (09:46)
[2020-05-20] MEDS: Cholecalciferol (D-3) 1,000 UNIT (25MCG) TABLET PO SCH (09:46)
[2020-05-20] MEDS: CRANBERRY 15000 MG PO SCH ×2 (09:47→21:04)
[2020-05-20] MEDS: Nitrofurantoin (BID) 100 MG CAPSULE PO SCH ×2 (09:49→16:28)
[2020-05-20] MEDS: *HR* OxyCODONE/APAP 10/325 TABLET PO PRN (09:49)
[2020-05-20] MEDS: Sennosides/Docusate Sodium TABLET PO SCH ×2 (13:50→21:04)
[2020-05-21] MEDS: *HR* OxyCODONE/APAP 10/325 TABLET PO PRN (06:17)
[2020-05-21] MEDS: *HR* Enoxaparin 40 MG/0.4 ML SYRINGE SQ SCH (06:17)
[2020-05-21] MEDS: Cholecalciferol (D-3) 1,000 UNIT (25MCG) TABLET PO SCH (09:12)
[2020-05-21] MEDS: Nitrofurantoin (BID) 100 MG CAPSULE PO SCH ×2 (09:12→16:39)
[2020-05-21] MEDS: Aspirin 81 MG TAB.CHEW PO SCH (09:12)
[2020-05-21] MEDS: Sennosides/Docusate Sodium TABLET PO SCH ×2 (09:12→20:24)
[2020-05-21] MEDS: Multivit/Ca/Min/Fe/FA 1 TAB TABLET PO SCH (09:13)
[2020-05-21] MEDS: Metoprolol XL (24 HR) Succ 25 MG TAB.ER.24H PO SCH (09:13)
[2020-05-21] MEDS: CRANBERRY 15000 MG PO SCH ×2 (09:13→20:24)
[2020-05-21] MEDS: ALPRAZolam 1 MG TABLET PO PRN (18:24)
[2020-05-22] MEDS: *HR* Enoxaparin 40 MG/0.4 ML SYRINGE SQ SCH (06:22)
[2020-05-22] MEDS: ALPRAZolam 1 MG TABLET PO PRN (06:25)
[2020-05-22] MEDS: CRANBERRY 15000 MG PO SCH ×2 (08:16→20:19)
[2020-05-22] MEDS: Cholecalciferol (D-3) 1,000 UNIT (25MCG) TABLET PO SCH (08:20)
[2020-05-22] MEDS: Metoprolol XL (24 HR) Succ 25 MG TAB.ER.24H PO SCH (08:20)
[2020-05-22] MEDS: Nitrofurantoin (BID) 100 MG CAPSULE PO SCH ×2 (08:20→16:51)
[2020-05-22] MEDS: Sennosides/Docusate Sodium TABLET PO SCH ×2 (08:20→20:20)
[2020-05-22] MEDS: Aspirin 81 MG TAB.CHEW PO SCH (08:20)
[2020-05-22] MEDS: Multivit/Ca/Min/Fe/FA 1 TAB TABLET PO SCH (08:20)
[2020-05-22] MEDS: Acetaminophen 325 MG TABLET PO PRN (20:18)
[2020-05-23] MEDS: *HR* Enoxaparin 40 MG/0.4 ML SYRINGE SQ SCH (06:53)
[2020-05-23 07:09] LABS: Hemoglobin 8.3 g/dL (11.5-15.4); Mean Corpuscular HGB Conc 29.6 g/dL (31.6-35.5); Mean Corpuscular Hemoglobin 29.9 pg (28.0-33.3); Mean Corpuscular Volume 100.7 fL (83.0-100.0); Mean Platelet Volume 9.5 fL (9.4-12.4); Platelet Count 195 K/mcL (140-400); Red Blood Count 2.78 M/mcL (3.82-4.97); Red Cell Distribution Width 17.2 % (11.5-14.5); White Blood Count 5.4 K/mcL (4.3-11.1)
[2020-05-23 07:29] LABS: BUN/Creatinine Ratio 28 (6-26); Blood Urea Nitrogen 26 mg/dL (8-23); Calcium 8.5 mg/dL (8.6-10.3); Carbon Dioxide 24 mEq/L (23-29); Chloride 106 mEq/L (98-107); Glucose 97 mg/dL (70-105); Osmolality,Calculated 293 (280-300); Potassium 4.1 mEq/L (3.5-5.1); Sodium 139 mEq/L (136-145); eGFR For African Americans > 60 (> 60); eGFR For Non-African Americans 59 (> 60)
[2020-05-23 08:59] LABS: Eosinophils # 0.8 K/mcL (0.0-0.6); Lymphocytes # 0.8 K/mcL (0.6-4.6); Monocytes # 0.3 K/mcL (0.0-1.3); Neutrophils # 3.1 K/mcL (1.6-8.9); Platelet Estimate Normal (Normal)
[2020-05-23] MEDS: Multivit/Ca/Min/Fe/FA 1 TAB TABLET PO SCH (09:04)
[2020-05-23] MEDS: Sennosides/Docusate Sodium TABLET PO SCH ×2 (09:04→20:00)
[2020-05-23] MEDS: ALPRAZolam 1 MG TABLET PO PRN ×2 (09:04→20:01)
[2020-05-23] MEDS: Cholecalciferol (D-3) 1,000 UNIT (25MCG) TABLET PO SCH (09:04)
[2020-05-23] MEDS: *HR* OxyCODONE/APAP 10/325 TABLET PO PRN (09:04)
[2020-05-23] MEDS: Aspirin 81 MG TAB.CHEW PO SCH (09:04)
[2020-05-23] MEDS: Nitrofurantoin (BID) 100 MG CAPSULE PO SCH ×2 (09:04→17:02)
[2020-05-23] MEDS: Metoprolol XL (24 HR) Succ 25 MG TAB.ER.24H PO SCH (09:04)
[2020-05-23] MEDS: CRANBERRY 15000 MG PO SCH ×2 (09:05→19:58)
[2020-05-23] MEDS: Acetaminophen 325 MG TABLET PO PRN (23:27)
[2020-05-24] MEDS: ALPRAZolam 1 MG TABLET PO PRN ×2 (04:18→19:22)
[2020-05-24] MEDS: *HR* Enoxaparin 40 MG/0.4 ML SYRINGE SQ SCH (06:27)
[2020-05-24] MEDS: *HR* OxyCODONE/APAP 10/325 TABLET PO PRN (06:32)
[2020-05-24] MEDS: Cholecalciferol (D-3) 1,000 UNIT (25MCG) TABLET PO SCH (08:52)
[2020-05-24] MEDS: Sennosides/Docusate Sodium TABLET PO SCH ×2 (08:52→19:32)
[2020-05-24] MEDS: Aspirin 81 MG TAB.CHEW PO SCH (08:52)
[2020-05-24] MEDS: Multivit/Ca/Min/Fe/FA 1 TAB TABLET PO SCH (08:53)
[2020-05-24] MEDS: Nitrofurantoin (BID) 100 MG CAPSULE PO SCH ×2 (08:53→15:54)
[2020-05-24] MEDS: CRANBERRY 15000 MG PO SCH ×2 (08:53→19:32)
[2020-05-24] MEDS: Metoprolol XL (24 HR) Succ 25 MG TAB.ER.24H PO SCH (08:53)
[2020-05-24] MEDS: Acetaminophen 325 MG TABLET PO PRN (19:22)
[2020-05-25] MEDS: ALPRAZolam 1 MG TABLET PO PRN (02:54)
[2020-05-25] MEDS: *HR* Enoxaparin 40 MG/0.4 ML SYRINGE SQ SCH (05:47)
[2020-05-25] MEDS: Sennosides/Docusate Sodium TABLET PO SCH (09:23)
[2020-05-25] MEDS: Aspirin 81 MG TAB.CHEW PO SCH (09:24)
[2020-05-25] MEDS: Cholecalciferol (D-3) 1,000 UNIT (25MCG) TABLET PO SCH (09:24)
[2020-05-25] MEDS: CRANBERRY 15000 MG PO SCH ×2 (09:24→19:42)
[2020-05-25] MEDS: Multivit/Ca/Min/Fe/FA 1 TAB TABLET PO SCH (09:24)
[2020-05-25] MEDS: Metoprolol XL (24 HR) Succ 25 MG TAB.ER.24H PO SCH (09:24)
[2020-05-25] MEDS: *HR* OxyCODONE/APAP 10/325 TABLET PO PRN (09:25)
[2020-05-26] MEDS: Acetaminophen 325 MG TABLET PO PRN (01:42)
[2020-05-26] MEDS: *HR* Enoxaparin 40 MG/0.4 ML SYRINGE SQ SCH (05:30)
[2020-05-26] MEDS: Metoprolol XL (24 HR) Succ 25 MG TAB.ER.24H PO SCH (09:06)
[2020-05-26] MEDS: *HR* OxyCODONE/APAP 10/325 TABLET PO PRN (09:06)
[2020-05-26] MEDS: Multivit/Ca/Min/Fe/FA 1 TAB TABLET PO SCH (09:07)
[2020-05-26] MEDS: Cholecalciferol (D-3) 1,000 UNIT (25MCG) TABLET PO SCH (09:07)
[2020-05-26] MEDS: Aspirin 81 MG TAB.CHEW PO SCH (09:07)
[2020-05-26] MEDS: ALPRAZolam 1 MG TABLET PO SCH ×2 (09:07→09:10)
[2020-05-26] MEDS: CRANBERRY 15000 MG PO SCH ×2 (09:08→20:45)
[2020-05-26 10:02] LABS: Bilirubin,Urine Negative (Negative); Blood,Urine Moderate (Negative); Clarity,Urine Cloudy (Clear); Color,Urine Yellow (Yellow); Glucose,Urine (UA) Normal (Normal); Ketones,Urine Negative (Negative); Leukocyte Esterase,Urine Large (Negative); Nitrite,Urine Positive (Negative); PH,Urine 7.5 pH Units (5.0-8.0); Protein,Urine 100 mg/dL (Neg-Trace); Urobilinogen,Urine Normal (Normal)
[2020-05-26 10:36] LABS: Bacteria,Urine Moderate per hpf (None-Few); Mucus,Urine Few per lpf (None-Few); WBC,Urine 50-100 per hpf (0-3)
[2020-05-26] MEDS: Loratadine 10 MG TABLET PO SCH (11:30)
[2020-05-26] MEDS: ALPRAZolam 1 MG TABLET PO PRN (20:45)
[2020-05-27] MEDS ORDERED: ALPRAZolam 0.5 MG TABLET PO ONE (04:41)
[2020-05-27] MEDS: *HR* Enoxaparin 40 MG/0.4 ML SYRINGE SQ SCH (04:47)
[2020-05-27 06:41] LABS: Hematocrit 25.6 % (35.3-44.9); Hemoglobin 7.6 g/dL (11.5-15.4); Mean Corpuscular HGB Conc 29.7 g/dL (31.6-35.5); Mean Corpuscular Hemoglobin 29.5 pg (28.0-33.3); Mean Corpuscular Volume 99.2 fL (83.0-100.0); Mean Platelet Volume 9.9 fL (9.4-12.4); Nucleated Red Blood Cells 0.6 /100 WBC (0); Platelet Count 310 K/mcL (140-400); Red Blood Count 2.58 M/mcL (3.82-4.97); Red Cell Distribution Width 17.4 % (11.5-14.5); White Blood Count 7.3 K/mcL (4.3-11.1)
[2020-05-27 07:03] LABS: Alanine Aminotransferase 10 Units/L (7-52); Albumin 2.5 g/dL (3.5-5.7); Albumin/Globulin Ratio 0.6 (1.1-2.2); Alkaline Phosphatase 70 Units/L (34-104); Aspartate Amino Transferase 13 Units/L (13-39); BUN/Creatinine Ratio 23 (6-26); Bilirubin,Total 0.3 mg/dL (0.3-1.0); Blood Urea Nitrogen 23 mg/dL (8-23); Calcium 8.2 mg/dL (8.6-10.3); Carbon Dioxide 22 mEq/L (23-29); Chloride 106 mEq/L (98-107); Globulin 3.9 g/dL (2.4-3.5); Glucose 103 mg/dL (70-105); Magnesium 1.3 mg/dL (1.6-2.6); Osmolality,Calculated 286 (280-300); Phosphorous 2.7 mg/dL (2.7-4.5); Potassium 4.2 mEq/L (3.5-5.1); Sodium 136 mEq/L (136-145); Total Protein 6.4 g/dL (6.4-8.9); eGFR For African Americans > 60 (> 60); eGFR For Non-African Americans 55 (> 60)
[2020-05-27 07:36] LABS: Lymphocytes # 1.3 K/mcL (0.6-4.6); Neutrophils # 5.7 K/mcL (1.6-8.9); Rouleaux Present (Not Present); Toxic Granulation Present (Not Present)
[2020-05-27] MEDS: Cholecalciferol (D-3) 1,000 UNIT (25MCG) TABLET PO SCH (09:35)
[2020-05-27] MEDS: Metoprolol XL (24 HR) Succ 25 MG TAB.ER.24H PO SCH (09:35)
[2020-05-27] MEDS: Multivit/Ca/Min/Fe/FA 1 TAB TABLET PO SCH (09:35)
[2020-05-27] MEDS: Loratadine 10 MG TABLET PO SCH (09:35)
[2020-05-27] MEDS: Aspirin 81 MG TAB.CHEW PO SCH (09:35)
[2020-05-27] MEDS: CRANBERRY 15000 MG PO SCH ×2 (09:38→20:19)
[2020-05-27] MEDS: *HR* OxyCODONE/APAP 10/325 TABLET PO PRN (09:39)
[2020-05-27] MEDS: Acetaminophen 325 MG TABLET PO PRN (21:59)
[2020-05-27] MEDS: ALPRAZolam 1 MG TABLET PO PRN (23:19)
[2020-05-28] MEDS: *HR* Enoxaparin 40 MG/0.4 ML SYRINGE SQ SCH (05:47)
[2020-05-28] MEDS: Cholecalciferol (D-3) 1,000 UNIT (25MCG) TABLET PO SCH (07:59)
[2020-05-28] MEDS: Loratadine 10 MG TABLET PO SCH (08:00)
[2020-05-28] MEDS: Metoprolol XL (24 HR) Succ 25 MG TAB.ER.24H PO SCH (08:00)
[2020-05-28] MEDS: Multivit/Ca/Min/Fe/FA 1 TAB TABLET PO SCH (08:00)
[2020-05-28] MEDS: *HR* OxyCODONE/APAP 10/325 TABLET PO PRN (08:00)
[2020-05-28] MEDS: Aspirin 81 MG TAB.CHEW PO SCH (08:01)
[2020-05-28] MEDS: CRANBERRY 15000 MG PO SCH ×2 (08:02→19:59)
[2020-05-28] MEDS: Acetaminophen 325 MG TABLET PO PRN (23:02)
[2020-05-29] MEDS: ALPRAZolam 1 MG TABLET PO PRN ×2 (00:21→05:49)
[2020-05-29] MEDS: *HR* Enoxaparin 40 MG/0.4 ML SYRINGE SQ SCH (05:48)
[2020-05-29] MEDS: Acetaminophen 325 MG TABLET PO PRN (05:49)
[2020-05-29] MEDS: Multivit/Ca/Min/Fe/FA 1 TAB TABLET PO SCH (08:10)
[2020-05-29] MEDS: Loratadine 10 MG TABLET PO SCH (08:11)
[2020-05-29] MEDS: Cholecalciferol (D-3) 1,000 UNIT (25MCG) TABLET PO SCH (08:12)
[2020-05-29] MEDS: Aspirin 81 MG TAB.CHEW PO SCH (08:12)
[2020-05-29] MEDS: Metoprolol XL (24 HR) Succ 25 MG TAB.ER.24H PO SCH (08:12)
[2020-05-29] MEDS: CRANBERRY 15000 MG PO SCH ×2 (08:14→20:50)
[2020-05-29] MEDS: *HR* OxyCODONE/APAP 10/325 TABLET PO PRN (09:09)
[2020-05-30] MEDS: Acetaminophen 325 MG TABLET PO PRN ×2 (02:24→20:54)
[2020-05-30] MEDS: ALPRAZolam 1 MG TABLET PO PRN (02:24)
[2020-05-30] MEDS: *HR* Enoxaparin 40 MG/0.4 ML SYRINGE SQ SCH (06:10)
[2020-05-30 07:34] LABS: Hematocrit 23.7 % (35.3-44.9); Mean Corpuscular HGB Conc 29.5 g/dL (31.6-35.5); Mean Corpuscular Volume 98.3 fL (83.0-100.0); Platelet Count 431 K/mcL (140-400); Red Blood Count 2.41 M/mcL (3.82-4.97); Red Cell Distribution Width 17.6 % (11.5-14.5)
[2020-05-30 08:04] LABS: Potassium 4.3 mEq/L (3.5-5.1)
[2020-05-30] MEDS: Cholecalciferol (D-3) 1,000 UNIT (25MCG) TABLET PO SCH (09:19)
[2020-05-30] MEDS: Metoprolol XL (24 HR) Succ 25 MG TAB.ER.24H PO SCH (09:19)
[2020-05-30] MEDS: CRANBERRY 15000 MG PO SCH ×2 (09:20→20:45)
[2020-05-30] MEDS: Loratadine 10 MG TABLET PO SCH (09:20)
[2020-05-30] MEDS: Aspirin 81 MG TAB.CHEW PO SCH (09:20)
[2020-05-30] MEDS: Multivit/Ca/Min/Fe/FA 1 TAB TABLET PO SCH (09:20)
[2020-05-30] MEDS: *HR* OxyCODONE/APAP 10/325 TABLET PO PRN (09:33)
[2020-05-31] MEDS: ALPRAZolam 1 MG TABLET PO PRN (01:49)
[2020-05-31] MEDS: *HR* Enoxaparin 40 MG/0.4 ML SYRINGE SQ SCH (05:20)
[2020-05-31 06:40] LABS: Hematocrit 24.5 % (35.3-44.9); Hemoglobin 7.3 g/dL (11.5-15.4); Mean Corpuscular HGB Conc 29.8 g/dL (31.6-35.5); Mean Corpuscular Hemoglobin 29.8 pg (28.0-33.3); Mean Platelet Volume 8.8 fL (9.4-12.4); Platelet Count 446 K/mcL (140-400); Red Blood Count 2.45 M/mcL (3.82-4.97); Red Cell Distribution Width 17.6 % (11.5-14.5); White Blood Count 12.3 K/mcL (4.3-11.1)
[2020-05-31 07:05] LABS: Immature Reticulocyte % 43.6 % (11.0-38.0); Retculocyte # 0.11 M/mcL (0.05-0.10); Reticulocyte % 4.4 % (1.6-2.8)
[2020-05-31 08:04] LABS: Bilirubin,Direct 0.1 mg/dL (0.0-0.2); Bilirubin,Indirect 0.1 mg/dL (0.0-1.0); Bilirubin,Total 0.2 mg/dL (0.3-1.0)
[2020-05-31] MEDS: *HR* OxyCODONE/APAP 10/325 TABLET PO PRN (09:14)
[2020-05-31] MEDS: Aspirin 81 MG TAB.CHEW PO SCH (09:14)
[2020-05-31] MEDS: Cholecalciferol (D-3) 1,000 UNIT (25MCG) TABLET PO SCH (09:14)
[2020-05-31] MEDS: Metoprolol XL (24 HR) Succ 25 MG TAB.ER.24H PO SCH (09:15)
[2020-05-31] MEDS: Loratadine 10 MG TABLET PO SCH (09:15)
[2020-05-31] MEDS: Multivit/Ca/Min/Fe/FA 1 TAB TABLET PO SCH (09:15)
[2020-05-31] MEDS: CRANBERRY 15000 MG PO SCH ×2 (10:43→20:22)
[2020-05-31] MEDS ORDERED: ALPRAZolam 1 MG TABLET PO PRN (15:37)
[2020-05-31] MEDS: Acetaminophen 325 MG TABLET PO PRN (18:03)
[2020-06-01] MEDS: *HR* Enoxaparin 40 MG/0.4 ML SYRINGE SQ SCH (05:35)
[2020-06-01] MEDS: Aspirin 81 MG TAB.CHEW PO SCH (09:08)
[2020-06-01] MEDS: Metoprolol XL (24 HR) Succ 25 MG TAB.ER.24H PO SCH (09:08)
[2020-06-01] MEDS: Cholecalciferol (D-3) 1,000 UNIT (25MCG) TABLET PO SCH (09:08)
[2020-06-01] MEDS: Loratadine 10 MG TABLET PO SCH (09:09)
[2020-06-01] MEDS: Multivit/Ca/Min/Fe/FA 1 TAB TABLET PO SCH (09:09)
[2020-06-01] MEDS: CRANBERRY 15000 MG PO SCH ×2 (09:11→20:03)
[2020-06-01 09:14] LABS: Hematocrit 26.2 % (35.3-44.9); Hemoglobin 7.6 g/dL (11.5-15.4); Mean Corpuscular Hemoglobin 29.1 pg (28.0-33.3); Mean Corpuscular Volume 100.4 fL (83.0-100.0); Mean Platelet Volume 8.8 fL (9.4-12.4); Monocytes # 0.9 K/mcL (0.0-1.3); Nucleated Red Blood Cells 0.4 /100 WBC (0); Platelet Count 437 K/mcL (140-400); Red Blood Count 2.61 M/mcL (3.82-4.97); Red Cell Distribution Width 17.9 % (11.5-14.5); White Blood Count 11.1 K/mcL (4.3-11.1)
[2020-06-01 09:38] LABS: Alanine Aminotransferase 10 Units/L (7-52); Albumin 2.7 g/dL (3.5-5.7); Albumin/Globulin Ratio 0.7 (1.1-2.2); Alkaline Phosphatase 77 Units/L (34-104); Aspartate Amino Transferase 14 Units/L (13-39); BUN/Creatinine Ratio 19 (6-26); Bilirubin,Total 0.2 mg/dL (0.3-1.0); Blood Urea Nitrogen 20 mg/dL (8-23); Calcium 8.2 mg/dL (8.6-10.3); Carbon Dioxide 26 mEq/L (23-29); Chloride 106 mEq/L (98-107); Globulin 4.1 g/dL (2.4-3.5); Glucose 144 mg/dL (70-105); Osmolality,Calculated 293 (280-300); Potassium 4.4 mEq/L (3.5-5.1); Sodium 139 mEq/L (136-145); Total Protein 6.8 g/dL (6.4-8.9); eGFR For African Americans > 60 (> 60); eGFR For Non-African Americans 50 (> 60)
[2020-06-01 12:38] LABS: Basophils # 0.2 K/mcL (0.0-0.2); Lymphocytes # 1.6 K/mcL (0.6-4.6); Neutrophils # 6.9 K/mcL (1.6-8.9)
[2020-06-01 12:39] LABS: Platelet Estimate Normal (Normal)
[2020-06-02] MEDS: Cholecalciferol (D-3) 1,000 UNIT (25MCG) TABLET PO SCH (09:30)
[2020-06-02] MEDS: Multivit/Ca/Min/Fe/FA 1 TAB TABLET PO SCH (09:30)
[2020-06-02] MEDS: Aspirin 81 MG TAB.CHEW PO SCH (09:31)
[2020-06-02] MEDS: Loratadine 10 MG TABLET PO SCH (09:32)
[2020-06-02] MEDS: CRANBERRY 15000 MG PO SCH ×2 (09:32→20:44)
[2020-06-02] MEDS: Metoprolol XL (24 HR) Succ 25 MG TAB.ER.24H PO SCH (09:32)
[2020-06-03] MEDS: *HR* OxyCODONE/APAP 10/325 TABLET PO PRN (00:46)
[2020-06-03] MEDS ORDERED: ALPRAZolam 0.5 MG TABLET PO SCH (09:00)
[2020-06-03] MEDS: CRANBERRY 15000 MG PO SCH ×2 (09:05→20:43)
[2020-06-03] MEDS: Cholecalciferol (D-3) 1,000 UNIT (25MCG) TABLET PO SCH (09:08)
[2020-06-03] MEDS: Multivit/Ca/Min/Fe/FA 1 TAB TABLET PO SCH (09:08)
[2020-06-03] MEDS: Aspirin 81 MG TAB.CHEW PO SCH (09:08)
[2020-06-03] MEDS: Loratadine 10 MG TABLET PO SCH (09:08)
[2020-06-03] MEDS: Metoprolol XL (24 HR) Succ 25 MG TAB.ER.24H PO SCH (09:08)
[2020-06-03] MEDS: Acetaminophen 325 MG TABLET PO PRN (09:19)
[2020-06-03] MEDS: ALPRAZolam 0.5 MG TABLET PO PRN (13:06)
[2020-06-04] MEDS: *HR* OxyCODONE/APAP 10/325 TABLET PO PRN (02:44)
[2020-06-04] MEDS: Multivit/Ca/Min/Fe/FA 1 TAB TABLET PO SCH (09:12)
[2020-06-04] MEDS: Loratadine 10 MG TABLET PO SCH (09:12)
[2020-06-04] MEDS: Metoprolol XL (24 HR) Succ 25 MG TAB.ER.24H PO SCH (09:17)
[2020-06-04] MEDS: Aspirin 81 MG TAB.CHEW PO SCH (09:17)
[2020-06-04] MEDS: Cholecalciferol (D-3) 1,000 UNIT (25MCG) TABLET PO SCH (09:17)
[2020-06-04] MEDS: CRANBERRY 15000 MG PO SCH ×2 (09:18→22:50)
[2020-06-04 09:57] LABS: Basophils # 0.2 K/mcL (0.0-0.2); Basophils % 1.1 %; Eosinophils % 0.1 %; Hematocrit 27.8 % (35.3-44.9); Hemoglobin 8.1 g/dL (11.5-15.4); Immature Granulocytes % 10.7 % (0-4); Lymphocytes # 2.3 K/mcL (0.6-4.6); Lymphocytes % 16.5 %; Mean Corpuscular HGB Conc 29.1 g/dL (31.6-35.5); Mean Corpuscular Hemoglobin 29.1 pg (28.0-33.3); Mean Platelet Volume 8.8 fL (9.4-12.4); Monocytes # 1.1 K/mcL (0.0-1.3); Monocytes % 7.8 %; Nucleated Red Blood Cells 0.4 /100 WBC (0); Platelet Count 459 K/mcL (140-400); Red Blood Count 2.78 M/mcL (3.82-4.97); Red Cell Distribution Width 18.2 % (11.5-14.5); Segmented Neutrophils % 63.8 %; White Blood Count 14.2 K/mcL (4.3-11.1)
[2020-06-04 09:59] LABS: Neutrophils # 9.1 K/mcL (1.6-8.9)
[2020-06-04 10:08] LABS: Calcium 8.5 mg/dL (8.6-10.3)
[2020-06-04 10:34] LABS: Anisocytosis 1+ (Not Present); Poikilocytosis 1+ (Not Present)
[2020-06-04 10:35] LABS: Platelet Estimate Normal (Normal)
[2020-06-04] MEDS: ALPRAZolam 0.5 MG TABLET PO PRN (13:18)
[2020-06-05] MEDS: *HR* OxyCODONE/APAP 10/325 TABLET PO PRN (00:09)
[2020-06-05] MEDS: Multivit/Ca/Min/Fe/FA 1 TAB TABLET PO SCH (09:58)
[2020-06-05] MEDS: Cholecalciferol (D-3) 1,000 UNIT (25MCG) TABLET PO SCH (09:58)
[2020-06-05] MEDS: Metoprolol XL (24 HR) Succ 25 MG TAB.ER.24H PO SCH (09:59)
[2020-06-05] MEDS: Aspirin 81 MG TAB.CHEW PO SCH (09:59)
[2020-06-05] MEDS: Loratadine 10 MG TABLET PO SCH (09:59)
[2020-06-05] MEDS: CRANBERRY 15000 MG PO SCH ×2 (10:03→20:45)
[2020-06-05] MEDS: ALPRAZolam 0.5 MG TABLET PO PRN (14:07)
[2020-06-06] MEDS: *HR* OxyCODONE/APAP 10/325 TABLET PO PRN (02:35)
[2020-06-06] MEDS: Aspirin 81 MG TAB.CHEW PO SCH (08:13)
[2020-06-06] MEDS: Multivit/Ca/Min/Fe/FA 1 TAB TABLET PO SCH (08:13)
[2020-06-06] MEDS: Metoprolol XL (24 HR) Succ 25 MG TAB.ER.24H PO SCH (08:14)
[2020-06-06] MEDS: Loratadine 10 MG TABLET PO SCH (08:14)
[2020-06-06] MEDS: Cholecalciferol (D-3) 1,000 UNIT (25MCG) TABLET PO SCH (08:14)
[2020-06-06] MEDS: CRANBERRY 15000 MG PO SCH ×2 (08:15→20:02)
[2020-06-06] MEDS ORDERED: ALPRAZolam 0.5 MG TABLET PO PRN ×2 (13:58→14:05)
[2020-06-06] MEDS: Acetaminophen 325 MG TABLET PO PRN (20:02)
[2020-06-07] MEDS: *HR* OxyCODONE/APAP 10/325 TABLET PO PRN (03:06)
[2020-06-07] MEDS: Metoprolol XL (24 HR) Succ 25 MG TAB.ER.24H PO SCH (09:09)
[2020-06-07] MEDS: Cholecalciferol (D-3) 1,000 UNIT (25MCG) TABLET PO SCH (09:09)
[2020-06-07] MEDS: Loratadine 10 MG TABLET PO SCH (09:09)
[2020-06-07] MEDS: Multivit/Ca/Min/Fe/FA 1 TAB TABLET PO SCH (09:09)
[2020-06-07] MEDS: Aspirin 81 MG TAB.CHEW PO SCH (09:09)
[2020-06-07] MEDS: CRANBERRY 15000 MG PO SCH ×2 (09:13→20:54)
[2020-06-07] MEDS: ALPRAZolam 0.5 MG TABLET PO PRN (15:17)
[2020-06-08] MEDS: *HR* OxyCODONE/APAP 10/325 TABLET PO PRN (03:11)
[2020-06-08 06:59] VITALS: BP 115/65
[2020-06-08] MEDS: CRANBERRY 15000 MG PO SCH (10:03)
[2020-06-08] MEDS: Cholecalciferol (D-3) 1,000 UNIT (25MCG) TABLET PO SCH (10:03)
[2020-06-08] MEDS: Loratadine 10 MG TABLET PO SCH (10:03)
[2020-06-08] MEDS: Metoprolol XL (24 HR) Succ 25 MG TAB.ER.24H PO SCH (10:03)
[2020-06-08] MEDS: Aspirin 81 MG TAB.CHEW PO SCH (10:04)
[2020-06-08] MEDS: Multivit/Ca/Min/Fe/FA 1 TAB TABLET PO SCH (10:04)
[2020-06-08] MEDS: ALPRAZolam 0.5 MG TABLET PO PRN (10:04)
== END 2020-06-08 14:27 | disposition home health service (06) | DRG 177 ==
LOC: INPPIK 17:42
PROVIDERS: ADMIT Family Medicine; ATTEND Family Medicine

== ENCOUNTER 2020-08-04 13:19 | Inpatient (IN) ==
[2020-08-04 13:55] LABS: Basophils # 0.1 K/mcL (0.0-0.2); Basophils % 0.5 %; Eosinophils # 0.1 K/mcL (0.0-0.6); Eosinophils % 0.7 %; Hematocrit 39.6 % (35.3-44.9); Hemoglobin 12.4 g/dL (11.5-15.4); Immature Granulocytes % 0.7 % (0-4); Lymphocytes # 2.2 K/mcL (0.6-4.6); Mean Corpuscular HGB Conc 31.3 g/dL (31.6-35.5); Mean Corpuscular Hemoglobin 28.1 pg (28.0-33.3); Mean Corpuscular Volume 89.6 fL (83.0-100.0); Monocytes # 0.9 K/mcL (0.0-1.3); Monocytes % 5.6 %; Neutrophils # 13.3 K/mcL (1.6-8.9); Platelet Count 399 K/mcL (140-400); Red Blood Count 4.42 M/mcL (3.82-4.97); Red Cell Distribution Width 16.6 % (11.5-14.5); Segmented Neutrophils % 79.5 %; White Blood Count 16.7 K/mcL (4.3-11.1)
[2020-08-04 14:03] LABS: INR 1.4
[2020-08-04 14:15] LABS: Troponin I < 0.03 ng/mL (< 0.04)
[2020-08-04 14:16] LABS: Acetaminophen 18 mcg/mL (10-20); Alanine Aminotransferase 14 Units/L (7-52); Albumin 2.4 g/dL (3.5-5.7); Albumin/Globulin Ratio 0.6 (1.1-2.2); Alkaline Phosphatase 178 Units/L (34-104); Aspartate Amino Transferase 48 Units/L (13-39); BUN/Creatinine Ratio 14 (6-26); Bilirubin,Total 0.3 mg/dL (0.3-1.0); Blood Urea Nitrogen 29 mg/dL (8-23); Calcium 6.2 mg/dL (8.6-10.3); Carbon Dioxide 16 mEq/L (23-29); Chloride 104 mEq/L (98-107); Ethanol < 10 mg/dL (Less than 10); Globulin 4.3 g/dL (2.4-3.5); Glucose 82 mg/dL (70-105); Osmolality,Calculated 287 (280-300); Potassium 2.6 mEq/L (3.5-5.1); Sodium 136 mEq/L (136-145); Total Protein 6.7 g/dL (6.4-8.9); eGFR For African Americans 29 (> 60); eGFR For Non-African Americans 24 (> 60)
[2020-08-04 14:46] LABS: Clarity,Urine Ex.Turbid (Clear); Color,Urine LIGHT YELLOW (Yellow)
[2020-08-04 14:47] LABS: Bilirubin,Urine Negative (Negative); Glucose,Urine (UA) Normal (Normal); Ketones,Urine Negative (Negative)
[2020-08-04 14:48] LABS: Blood,Urine Large (Negative); Leukocyte Esterase,Urine Moderate (Negative); Nitrite,Urine Negative (Negative); PH,Urine 6.5 pH Units (5.0-8.0); Protein,Urine >=300 mg/dL (Neg-Trace); Specific Gravity,Urine 1.015 (1.010-1.025); Urobilinogen,Urine Normal (Normal)
[2020-08-04 14:49] LABS: RBC,Urine TNTC per hpf (0-3); WBC,Urine TNTC per hpf (0-3)
[2020-08-04 14:50] LABS: Bacteria,Urine Many per hpf (None-Few); Renal Epithelial Cells,Urine Few per hpf (None-Few); Squamous Epithelial Cell,Urine None Seen per hpf (None-Few)
[2020-08-04 15:16] LABS: Amphetamine Screen,Urine Negative ng/mL (Cutoff=1000); Barbiturate Screen,Urine Negative ng/mL (Cutoff=200); Benzodiazepines Screen,Urine Positive ng/mL (Cutoff=200); Cannabinoid Screen,Urine Negative ng/mL (Cutoff = 50); Cocaine Screen,Urine Negative ng/mL (Cutoff= 300); Opiate Screen,Urine Negative ng/mL (Cutoff=300); Phencyclidine Screen,Urine Negative ng/mL (Cutoff=25)
[2020-08-04] MEDS ORDERED: Ondansetron 4 MG/2 ML VIAL IVP PRN (16:21)
[2020-08-04] MEDS ORDERED: Naloxone 0.4 MG/ML INJ IVP PRN (16:21)
[2020-08-04] MEDS ORDERED: Potassium Chloride 20 MEQ, Lidocaine 1% 2 ML in 0.9 % Sodium Chloride 250 ML IVPB ONE (16:29)
[2020-08-04] MEDS: 0.9 % Sodium Chloride 1,000 ML IVC SCH (17:30)
[2020-08-04] MEDS: Acetaminophen 325 MG TABLET PO PRN (20:05)
[2020-08-04] MEDS: *HR* Heparin 5,000 UNIT/ML VIAL SQ SCH (20:16)
[2020-08-05] MEDS: 0.9 % Sodium Chloride 1,000 ML IVC SCH ×3 (00:25→18:23)
[2020-08-05] MEDS: Acetaminophen 325 MG TABLET PO PRN ×2 (06:09→20:54)
[2020-08-05 06:12] LABS: Hematocrit 34.2 % (35.3-44.9); Hemoglobin 10.8 g/dL (11.5-15.4); Mean Corpuscular HGB Conc 31.6 g/dL (31.6-35.5); Mean Corpuscular Hemoglobin 28.1 pg (28.0-33.3); Mean Corpuscular Volume 88.8 fL (83.0-100.0); Mean Platelet Volume 9.8 fL (9.4-12.4); Platelet Count 285 K/mcL (140-400); Red Blood Count 3.85 M/mcL (3.82-4.97); Red Cell Distribution Width 16.6 % (11.5-14.5); White Blood Count 16.5 K/mcL (4.3-11.1)
[2020-08-05] MEDS: *HR* Heparin 5,000 UNIT/ML VIAL SQ SCH ×4 (06:18→22:05)
[2020-08-05 06:54] LABS: Calcium 5.4 mg/dL (8.6-10.3); Magnesium 0.9 mg/dL (1.6-2.6); Potassium 2.9 mEq/L (3.5-5.1)
[2020-08-05] MEDS ORDERED: Calcium Gluconate 1gm/50mL 1 GM/50 ML BAG IVPB ONE (06:58)
[2020-08-05] MEDS: Aspirin 81 MG TAB.CHEW PO SCH (08:02)
[2020-08-05] MEDS: Metoprolol XL (24 HR) Succ 25 MG TAB.ER.24H PO SCH (08:02)
[2020-08-05] MEDS: lisinopriL 5 MG TABLET PO SCH (08:02)
[2020-08-05] MEDS ORDERED: 0.9 % Sodium Chloride 500 ML IVC ONE (08:12)
[2020-08-05] MEDS ORDERED: cefTRIAXone 1,000 MG in Water for inj. (sterile) 10 ML IVP SCH (16:00)
[2020-08-05] MEDS ORDERED: Metoclopramide 10 MG/10 ML UD.LIQ PO PRN (16:38)
[2020-08-05] MEDS: Melatonin 3 MG TABLET PO PRN (23:51)
[2020-08-06] MEDS: 0.9 % Sodium Chloride 1,000 ML IVC SCH ×2 (03:02→12:00)
[2020-08-06] MEDS: *HR* Heparin 5,000 UNIT/ML VIAL SQ SCH ×3 (05:32→21:09)
[2020-08-06 06:27] LABS: Basophils % 0.3 %; Eosinophils # 0.3 K/mcL (0.0-0.6); Eosinophils % 2.3 %; Hematocrit 31.8 % (35.3-44.9); Hemoglobin 9.8 g/dL (11.5-15.4); Immature Granulocytes % 0.7 % (0-4); Lymphocytes # 1.5 K/mcL (0.6-4.6); Lymphocytes % 11.1 %; Mean Corpuscular HGB Conc 30.8 g/dL (31.6-35.5); Mean Corpuscular Hemoglobin 28.2 pg (28.0-33.3); Mean Corpuscular Volume 91.6 fL (83.0-100.0); Mean Platelet Volume 9.3 fL (9.4-12.4); Monocytes # 0.9 K/mcL (0.0-1.3); Monocytes % 6.4 %; Neutrophils # 10.9 K/mcL (1.6-8.9); Platelet Count 318 K/mcL (140-400); Red Blood Count 3.47 M/mcL (3.82-4.97); Red Cell Distribution Width 17.1 % (11.5-14.5); Segmented Neutrophils % 79.2 %; White Blood Count 13.8 K/mcL (4.3-11.1)
[2020-08-06 07:33] LABS: Calcium 5.8 mg/dL (8.6-10.3); Magnesium 1.4 mg/dL (1.6-2.6); Potassium 2.6 mEq/L (3.5-5.1)
[2020-08-06] MEDS: Acetaminophen 325 MG TABLET PO PRN (09:02)
[2020-08-06] MEDS: lisinopriL 5 MG TABLET PO SCH (09:03)
[2020-08-06] MEDS: Metoprolol XL (24 HR) Succ 25 MG TAB.ER.24H PO SCH (09:03)
[2020-08-06] MEDS: Aspirin 81 MG TAB.CHEW PO SCH (09:03)
[2020-08-06] MEDS: Calcium Gluconate 1gm/50mL 1 GM/50 ML BAG IVPB SCH ×2 (10:41→11:48)
[2020-08-06] MEDS ORDERED: cefTRIAXone 1,000 MG in 0.9 % Sodium Chloride Mini Bag 100 ML IVP SCH (16:00)
[2020-08-06] MEDS: Fluconazole 150 MG TABLET PO SCH (17:04)
[2020-08-06] MEDS: Melatonin 3 MG TABLET PO PRN (21:31)
[2020-08-07] MEDS: *HR* Heparin 5,000 UNIT/ML VIAL SQ SCH (05:53)
[2020-08-07 06:40] VITALS: BP 109/66
[2020-08-07 06:59] LABS: Hematocrit 36.5 % (35.3-44.9); Hemoglobin 10.9 g/dL (11.5-15.4); Mean Corpuscular HGB Conc 29.9 g/dL (31.6-35.5); Mean Corpuscular Volume 93.8 fL (83.0-100.0); Mean Platelet Volume 8.6 fL (9.4-12.4); Platelet Count 320 K/mcL (140-400); Red Blood Count 3.89 M/mcL (3.82-4.97); Red Cell Distribution Width 17.2 % (11.5-14.5); White Blood Count 15.1 K/mcL (4.3-11.1)
[2020-08-07 07:21] LABS: Magnesium 1.6 mg/dL (1.6-2.6)
[2020-08-07] MEDS ORDERED: Calcium Gluconate 1gm/50mL 1 GM/50 ML BAG IVPB ONE (07:52)
[2020-08-07] MEDS: Metoprolol XL (24 HR) Succ 25 MG TAB.ER.24H PO SCH (08:52)
[2020-08-07] MEDS: lisinopriL 5 MG TABLET PO SCH (08:52)
[2020-08-07] MEDS: Aspirin 81 MG TAB.CHEW PO SCH (08:52)
[2020-08-07] MEDS: Fluconazole 150 MG TABLET PO SCH (08:52)
[2020-08-07] MEDS ORDERED: Nystatin POWDER 30 GM BOTTLE TP SCH (11:00)
[2020-08-07] MEDS ORDERED: 0.9 % Sodium Chloride 1,000 ML IVC SCH (11:00)
[2020-08-07 11:50] LABS: Bilirubin,Urine Negative (Negative); Blood,Urine Large (Negative); Clarity,Urine Turbid (Clear); Color,Urine Yellow (Yellow); Glucose,Urine (UA) Normal (Normal); Ketones,Urine Negative (Negative); Leukocyte Esterase,Urine Large (Negative); Nitrite,Urine Negative (Negative); Protein,Urine 100 mg/dL (Neg-Trace); Urobilinogen,Urine Normal (Normal)
[2020-08-07 11:59] LABS: WBC,Urine TNTC per hpf (0-3)
[2020-08-07 12:00] LABS: Bacteria,Urine Many per hpf (None-Few); RBC,Urine 15-30 per hpf (0-3)
== END 2020-08-07 13:03 | disposition short-term general hospital (02) | DRG 689 ==
LOC: EMEROOPIK 13:19 → INPPIK 13:19
PROVIDERS: ADMIT Family Medicine; ATTEND Family Medicine

== ENCOUNTER 2020-08-12 19:33 | Inpatient (IN) ==
[2020-08-13] MEDS ORDERED: SUMAtriptan succinate 25 MG TABLET PO PRN (00:29)
[2020-08-13] MEDS: (Cranberry 500 MG Capsule) PO SCH (08:29)
[2020-08-13] MEDS: Aspirin 81 MG TAB.CHEW PO SCH (08:32)
[2020-08-13] MEDS: Multivit/Ca/Min/Fe/FA 1 TAB TABLET PO SCH (08:32)
[2020-08-13] MEDS: Fluconazole 100 MG TABLET PO SCH (08:32)
[2020-08-13] MEDS: Metoprolol XL (24 HR) Succ 25 MG TAB.ER.24H PO SCH (08:32)
[2020-08-13] MEDS: Cholecalciferol (D-3) 1,000 UNIT (25MCG) TABLET PO SCH (08:32)
[2020-08-13] MEDS: Nystatin POWDER 30 GM BOTTLE TP SCH (17:46)
[2020-08-14] MEDS: (Cranberry 500 MG Capsule) PO SCH ×3 (00:04→20:16)
[2020-08-14] MEDS: Nystatin POWDER 30 GM BOTTLE TP SCH ×4 (00:04→20:16)
[2020-08-14 05:42] LABS: Basophils # 0.1 K/mcL (0.0-0.2); Basophils % 0.8 %; Eosinophils # 0.5 K/mcL (0.0-0.6); Eosinophils % 6.1 %; Hematocrit 27.1 % (35.3-44.9); Immature Granulocytes % 3.9 % (0-4); Lymphocytes # 2.3 K/mcL (0.6-4.6); Lymphocytes % 27.2 %; Mean Corpuscular HGB Conc 29.5 g/dL (31.6-35.5); Mean Corpuscular Hemoglobin 28.2 pg (28.0-33.3); Mean Corpuscular Volume 95.4 fL (83.0-100.0); Mean Platelet Volume 9.7 fL (9.4-12.4); Monocytes # 0.8 K/mcL (0.0-1.3); Monocytes % 9.5 %; Neutrophils # 4.5 K/mcL (1.6-8.9); Platelet Count 217 K/mcL (140-400); Red Blood Count 2.84 M/mcL (3.82-4.97); Red Cell Distribution Width 17.6 % (11.5-14.5); Segmented Neutrophils % 52.5 %; White Blood Count 8.6 K/mcL (4.3-11.1)
[2020-08-14] MEDS: *HR* Enoxaparin 40 MG/0.4 ML SYRINGE SQ SCH (06:29)
[2020-08-14 07:33] LABS: BUN/Creatinine Ratio 11 (6-26); Blood Urea Nitrogen 12 mg/dL (8-23); Carbon Dioxide 25 mEq/L (23-29); Chloride 112 mEq/L (98-107); Glucose 87 mg/dL (70-105); Osmolality,Calculated 291 (280-300); Potassium 4.5 mEq/L (3.5-5.1); Sodium 141 mEq/L (136-145); eGFR For African Americans > 60 (> 60); eGFR For Non-African Americans 51 (> 60)
[2020-08-14] MEDS: Cholecalciferol (D-3) 1,000 UNIT (25MCG) TABLET PO SCH (08:56)
[2020-08-14] MEDS: Aspirin 81 MG TAB.CHEW PO SCH (08:56)
[2020-08-14] MEDS: Fluconazole 100 MG TABLET PO SCH (08:57)
[2020-08-14] MEDS: Multivit/Ca/Min/Fe/FA 1 TAB TABLET PO SCH (08:58)
[2020-08-14] MEDS: Metoprolol XL (24 HR) Succ 25 MG TAB.ER.24H PO SCH (08:58)
[2020-08-14] MEDS: Furosemide 20 MG TABLET PO SCH (08:58)
[2020-08-15] MEDS: *HR* Enoxaparin 40 MG/0.4 ML SYRINGE SQ SCH (06:00)
[2020-08-15] MEDS: Metoprolol XL (24 HR) Succ 25 MG TAB.ER.24H PO SCH (07:56)
[2020-08-15] MEDS: Furosemide 20 MG TABLET PO SCH (07:56)
[2020-08-15] MEDS: Aspirin 81 MG TAB.CHEW PO SCH (07:56)
[2020-08-15] MEDS: Multivit/Ca/Min/Fe/FA 1 TAB TABLET PO SCH (07:57)
[2020-08-15] MEDS: (Cranberry 500 MG Capsule) PO SCH ×2 (07:57→19:54)
[2020-08-15] MEDS: Fluconazole 100 MG TABLET PO SCH (07:57)
[2020-08-15] MEDS: Cholecalciferol (D-3) 1,000 UNIT (25MCG) TABLET PO SCH (07:57)
[2020-08-15] MEDS: Nystatin POWDER 30 GM BOTTLE TP SCH ×3 (07:57→19:53)
[2020-08-15] MEDS: Acetaminophen 325 MG TABLET PO PRN (19:53)
[2020-08-16] MEDS: Acetaminophen 325 MG TABLET PO PRN ×3 (03:05→20:36)
[2020-08-16] MEDS: *HR* Enoxaparin 40 MG/0.4 ML SYRINGE SQ SCH (05:47)
[2020-08-16] MEDS: Fluconazole 100 MG TABLET PO SCH (07:41)
[2020-08-16] MEDS: Furosemide 20 MG TABLET PO SCH (07:41)
[2020-08-16] MEDS: Metoprolol XL (24 HR) Succ 25 MG TAB.ER.24H PO SCH (07:41)
[2020-08-16] MEDS: Aspirin 81 MG TAB.CHEW PO SCH (07:41)
[2020-08-16] MEDS: Cholecalciferol (D-3) 1,000 UNIT (25MCG) TABLET PO SCH (07:41)
[2020-08-16] MEDS: Nystatin POWDER 30 GM BOTTLE TP SCH ×3 (07:42→20:36)
[2020-08-16] MEDS: (Cranberry 500 MG Capsule) PO SCH ×2 (07:42→20:36)
[2020-08-16] MEDS: Multivit/Ca/Min/Fe/FA 1 TAB TABLET PO SCH (07:42)
[2020-08-17] MEDS: *HR* Enoxaparin 40 MG/0.4 ML SYRINGE SQ SCH (06:11)
[2020-08-17] MEDS: Metoprolol XL (24 HR) Succ 25 MG TAB.ER.24H PO SCH (08:20)
[2020-08-17] MEDS: Multivit/Ca/Min/Fe/FA 1 TAB TABLET PO SCH (08:20)
[2020-08-17] MEDS: Aspirin 81 MG TAB.CHEW PO SCH (08:20)
[2020-08-17] MEDS: Furosemide 20 MG TABLET PO SCH (08:20)
[2020-08-17] MEDS: Fluconazole 100 MG TABLET PO SCH (08:20)
[2020-08-17] MEDS: Cholecalciferol (D-3) 1,000 UNIT (25MCG) TABLET PO SCH (08:20)
[2020-08-17] MEDS: Nystatin POWDER 30 GM BOTTLE TP SCH ×3 (08:21→20:09)
[2020-08-17] MEDS: (Cranberry 500 MG Capsule) PO SCH ×2 (08:21→20:10)
[2020-08-17] MEDS: Acetaminophen 325 MG TABLET PO PRN (20:09)
[2020-08-18] MEDS: *HR* Enoxaparin 40 MG/0.4 ML SYRINGE SQ SCH (05:32)
[2020-08-18 05:41] LABS: Hemoglobin 8.4 g/dL (11.5-15.4); Mean Corpuscular Hemoglobin 28.4 pg (28.0-33.3); Mean Corpuscular Volume 94.6 fL (83.0-100.0); Mean Platelet Volume 9.6 fL (9.4-12.4); Platelet Count 256 K/mcL (140-400); Red Blood Count 2.96 M/mcL (3.82-4.97); Red Cell Distribution Width 17.8 % (11.5-14.5); White Blood Count 12.9 K/mcL (4.3-11.1)
[2020-08-18 06:07] LABS: Calcium 7.8 mg/dL (8.6-10.3); Magnesium 1.4 mg/dL (1.6-2.6); Potassium 4.9 mEq/L (3.5-5.1)
[2020-08-18] MEDS: Metoprolol XL (24 HR) Succ 25 MG TAB.ER.24H PO SCH (09:22)
[2020-08-18] MEDS: Fluconazole 100 MG TABLET PO SCH (09:22)
[2020-08-18] MEDS: Furosemide 20 MG TABLET PO SCH (09:23)
[2020-08-18] MEDS: Multivit/Ca/Min/Fe/FA 1 TAB TABLET PO SCH (09:23)
[2020-08-18] MEDS: Aspirin 81 MG TAB.CHEW PO SCH (09:23)
[2020-08-18] MEDS: Nystatin POWDER 30 GM BOTTLE TP SCH ×3 (09:24→19:27)
[2020-08-18] MEDS: (Cranberry 500 MG Capsule) PO SCH ×2 (09:24→19:31)
[2020-08-18] MEDS: Cholecalciferol (D-3) 1,000 UNIT (25MCG) TABLET PO SCH (09:24)
[2020-08-18] MEDS: Ergocalciferol (VIT D2) 50,000 UNIT (1.25MG) CAP PO SCH (09:31)
[2020-08-19] MEDS: *HR* Enoxaparin 40 MG/0.4 ML SYRINGE SQ SCH (05:01)
[2020-08-19 06:20] LABS: Hematocrit 29.8 % (35.3-44.9); Hemoglobin 9.2 g/dL (11.5-15.4); Mean Corpuscular HGB Conc 30.9 g/dL (31.6-35.5); Mean Corpuscular Hemoglobin 28.6 pg (28.0-33.3); Mean Corpuscular Volume 92.5 fL (83.0-100.0); Mean Platelet Volume 9.8 fL (9.4-12.4); Platelet Count 316 K/mcL (140-400); Red Blood Count 3.22 M/mcL (3.82-4.97); Red Cell Distribution Width 17.7 % (11.5-14.5); White Blood Count 10.4 K/mcL (4.3-11.1)
[2020-08-19 06:52] LABS: Calcium 8.2 mg/dL (8.6-10.3); Potassium 4.4 mEq/L (3.5-5.1)
[2020-08-19] MEDS: Fluconazole 100 MG TABLET PO SCH (07:54)
[2020-08-19] MEDS: Metoprolol XL (24 HR) Succ 25 MG TAB.ER.24H PO SCH (07:54)
[2020-08-19] MEDS: Aspirin 81 MG TAB.CHEW PO SCH (07:55)
[2020-08-19] MEDS: Furosemide 20 MG TABLET PO SCH (07:55)
[2020-08-19] MEDS: Cholecalciferol (D-3) 1,000 UNIT (25MCG) TABLET PO SCH (07:55)
[2020-08-19] MEDS: Multivit/Ca/Min/Fe/FA 1 TAB TABLET PO SCH (07:55)
[2020-08-19] MEDS: Nystatin POWDER 30 GM BOTTLE TP SCH ×3 (07:56→21:52)
[2020-08-19] MEDS: (Cranberry 500 MG Capsule) PO SCH ×2 (07:56→21:53)
[2020-08-19] MEDS: Acetaminophen 325 MG TABLET PO PRN (21:52)
[2020-08-20] MEDS: *HR* Enoxaparin 40 MG/0.4 ML SYRINGE SQ SCH (05:13)
[2020-08-20 07:30] LABS: Hematocrit 29.6 % (35.3-44.9); Mean Corpuscular HGB Conc 30.4 g/dL (31.6-35.5); Mean Corpuscular Hemoglobin 28.8 pg (28.0-33.3); Mean Corpuscular Volume 94.6 fL (83.0-100.0); Platelet Count 337 K/mcL (140-400); Red Blood Count 3.13 M/mcL (3.82-4.97); Red Cell Distribution Width 17.8 % (11.5-14.5)
[2020-08-20 07:47] LABS: Calcium 7.7 mg/dL (8.6-10.3); Potassium 4.1 mEq/L (3.5-5.1)
[2020-08-20] MEDS: Aspirin 81 MG TAB.CHEW PO SCH (08:42)
[2020-08-20] MEDS: Furosemide 20 MG TABLET PO SCH (08:42)
[2020-08-20] MEDS: Multivit/Ca/Min/Fe/FA 1 TAB TABLET PO SCH (08:42)
[2020-08-20] MEDS: Metoprolol XL (24 HR) Succ 25 MG TAB.ER.24H PO SCH (08:42)
[2020-08-20] MEDS: Cholecalciferol (D-3) 1,000 UNIT (25MCG) TABLET PO SCH (08:42)
[2020-08-20] MEDS: Fluconazole 100 MG TABLET PO SCH (08:43)
[2020-08-20] MEDS: Nystatin POWDER 30 GM BOTTLE TP SCH ×3 (08:44→21:50)
[2020-08-20] MEDS: (Cranberry 500 MG Capsule) PO SCH ×2 (08:45→21:07)
[2020-08-20] MEDS: Acetaminophen 325 MG TABLET PO PRN (21:48)
[2020-08-21] MEDS: *HR* Enoxaparin 40 MG/0.4 ML SYRINGE SQ SCH (05:41)
[2020-08-21] MEDS: (Cranberry 500 MG Capsule) PO SCH ×2 (08:22→20:36)
[2020-08-21] MEDS: Fluconazole 100 MG TABLET PO SCH (08:28)
[2020-08-21] MEDS: Metoprolol XL (24 HR) Succ 25 MG TAB.ER.24H PO SCH (08:28)
[2020-08-21] MEDS: Nystatin POWDER 30 GM BOTTLE TP SCH ×3 (08:28→20:36)
[2020-08-21] MEDS: Aspirin 81 MG TAB.CHEW PO SCH (08:28)
[2020-08-21] MEDS: Multivit/Ca/Min/Fe/FA 1 TAB TABLET PO SCH (08:28)
[2020-08-21] MEDS: Furosemide 20 MG TABLET PO SCH (08:28)
[2020-08-21] MEDS: Cholecalciferol (D-3) 1,000 UNIT (25MCG) TABLET PO SCH (08:28)
[2020-08-22] MEDS: *HR* Enoxaparin 30 MG/0.3 ML SYRINGE SQ SCH (05:41)
[2020-08-22] MEDS: Metoprolol XL (24 HR) Succ 25 MG TAB.ER.24H PO SCH (08:46)
[2020-08-22] MEDS: Aspirin 81 MG TAB.CHEW PO SCH (08:46)
[2020-08-22] MEDS: Nystatin POWDER 30 GM BOTTLE TP SCH ×3 (08:47→20:38)
[2020-08-22] MEDS: Cholecalciferol (D-3) 1,000 UNIT (25MCG) TABLET PO SCH (08:47)
[2020-08-22] MEDS: Multivit/Ca/Min/Fe/FA 1 TAB TABLET PO SCH (08:47)
[2020-08-22] MEDS: Furosemide 20 MG TABLET PO SCH (08:47)
[2020-08-22] MEDS: (Cranberry 500 MG Capsule) PO SCH ×2 (08:49→20:38)
[2020-08-23] MEDS: *HR* Enoxaparin 30 MG/0.3 ML SYRINGE SQ SCH (06:28)
[2020-08-23] MEDS: Cholecalciferol (D-3) 1,000 UNIT (25MCG) TABLET PO SCH (08:13)
[2020-08-23] MEDS: Metoprolol XL (24 HR) Succ 25 MG TAB.ER.24H PO SCH (08:14)
[2020-08-23] MEDS: Aspirin 81 MG TAB.CHEW PO SCH (08:14)
[2020-08-23] MEDS: (Cranberry 500 MG Capsule) PO SCH ×3 (08:14→21:05)
[2020-08-23] MEDS: Multivit/Ca/Min/Fe/FA 1 TAB TABLET PO SCH (08:14)
[2020-08-23] MEDS: Furosemide 20 MG TABLET PO SCH (08:14)
[2020-08-23] MEDS: Nystatin POWDER 30 GM BOTTLE TP SCH ×3 (08:15→21:04)
[2020-08-23 12:07] LABS: Calcium 8.5 mg/dL (8.6-10.3); Potassium 5.3 mEq/L (3.5-5.1)
[2020-08-24] MEDS: *HR* Enoxaparin 30 MG/0.3 ML SYRINGE SQ SCH (05:34)
[2020-08-24] MEDS: Multivit/Ca/Min/Fe/FA 1 TAB TABLET PO SCH (08:12)
[2020-08-24] MEDS: Furosemide 20 MG TABLET PO SCH (08:13)
[2020-08-24] MEDS: Aspirin 81 MG TAB.CHEW PO SCH (08:13)
[2020-08-24] MEDS: Metoprolol XL (24 HR) Succ 25 MG TAB.ER.24H PO SCH (08:13)
[2020-08-24] MEDS: Cholecalciferol (D-3) 1,000 UNIT (25MCG) TABLET PO SCH (08:13)
[2020-08-24] MEDS: Nystatin POWDER 30 GM BOTTLE TP SCH ×3 (08:14→20:58)
[2020-08-24] MEDS: (Cranberry 500 MG Capsule) PO SCH ×2 (08:14→20:57)
[2020-08-25] MEDS: *HR* Enoxaparin 30 MG/0.3 ML SYRINGE SQ SCH (05:20)
[2020-08-25 07:32] LABS: Basophils # 0.2 K/mcL (0.0-0.2); Basophils % 1.4 %; Eosinophils # 0.9 K/mcL (0.0-0.6); Eosinophils % 7.6 %; Hematocrit 30.7 % (35.3-44.9); Hemoglobin 9.1 g/dL (11.5-15.4); Immature Granulocytes % 1.8 % (0-4); Lymphocytes # 3.2 K/mcL (0.6-4.6); Lymphocytes % 27.2 %; Mean Corpuscular HGB Conc 29.6 g/dL (31.6-35.5); Mean Corpuscular Hemoglobin 28.4 pg (28.0-33.3); Mean Corpuscular Volume 95.9 fL (83.0-100.0); Mean Platelet Volume 10.2 fL (9.4-12.4); Monocytes # 0.8 K/mcL (0.0-1.3); Monocytes % 6.4 %; Neutrophils # 6.6 K/mcL (1.6-8.9); Platelet Count 431 K/mcL (140-400); Red Cell Distribution Width 17.2 % (11.5-14.5); Segmented Neutrophils % 55.6 %; White Blood Count 11.8 K/mcL (4.3-11.1)
[2020-08-25 07:55] LABS: Calcium 8.3 mg/dL (8.6-10.3); Potassium 4.2 mEq/L (3.5-5.1)
[2020-08-25] MEDS: Multivit/Ca/Min/Fe/FA 1 TAB TABLET PO SCH (10:14)
[2020-08-25] MEDS: Furosemide 20 MG TABLET PO SCH (10:14)
[2020-08-25] MEDS: Aspirin 81 MG TAB.CHEW PO SCH (10:14)
[2020-08-25] MEDS: Cholecalciferol (D-3) 1,000 UNIT (25MCG) TABLET PO SCH (10:15)
[2020-08-25] MEDS: Metoprolol XL (24 HR) Succ 25 MG TAB.ER.24H PO SCH (10:15)
[2020-08-25] MEDS: Ergocalciferol (VIT D2) 50,000 UNIT (1.25MG) CAP PO SCH (10:19)
[2020-08-25] MEDS: Nystatin POWDER 30 GM BOTTLE TP SCH ×2 (19:45→19:47)
[2020-08-25] MEDS: (Cranberry 500 MG Capsule) PO SCH ×2 (19:45→19:48)
[2020-08-26] MEDS: *HR* Enoxaparin 30 MG/0.3 ML SYRINGE SQ SCH (07:21)
[2020-08-26] MEDS: Cholecalciferol (D-3) 1,000 UNIT (25MCG) TABLET PO SCH (09:08)
[2020-08-26] MEDS: Aspirin 81 MG TAB.CHEW PO SCH (09:09)
[2020-08-26] MEDS: Multivit/Ca/Min/Fe/FA 1 TAB TABLET PO SCH (09:09)
[2020-08-26] MEDS: (Cranberry 500 MG Capsule) PO SCH ×2 (09:09→21:14)
[2020-08-26] MEDS: Furosemide 20 MG TABLET PO SCH (09:09)
[2020-08-26] MEDS: Metoprolol XL (24 HR) Succ 25 MG TAB.ER.24H PO SCH (09:09)
[2020-08-26] MEDS: Nystatin POWDER 30 GM BOTTLE TP SCH ×3 (09:10→21:15)
[2020-08-27] MEDS: *HR* Enoxaparin 30 MG/0.3 ML SYRINGE SQ SCH (06:44)
[2020-08-27] MEDS: Aspirin 81 MG TAB.CHEW PO SCH (07:54)
[2020-08-27] MEDS: Multivit/Ca/Min/Fe/FA 1 TAB TABLET PO SCH (07:54)
[2020-08-27] MEDS: Furosemide 20 MG TABLET PO SCH (07:54)
[2020-08-27] MEDS: Nystatin POWDER 30 GM BOTTLE TP SCH ×3 (07:54→21:02)
[2020-08-27] MEDS: Metoprolol XL (24 HR) Succ 25 MG TAB.ER.24H PO SCH (07:54)
[2020-08-27] MEDS: Cholecalciferol (D-3) 1,000 UNIT (25MCG) TABLET PO SCH (07:54)
[2020-08-27] MEDS: (Cranberry 500 MG Capsule) PO SCH ×2 (07:58→21:27)
[2020-08-27] MEDS: Nystatin SUSP 5 ML UD.LIQ PO SCH ×2 (17:05→20:02)
[2020-08-28] MEDS: *HR* Enoxaparin 30 MG/0.3 ML SYRINGE SQ SCH (06:04)
[2020-08-28] MEDS: Multivit/Ca/Min/Fe/FA 1 TAB TABLET PO SCH (08:20)
[2020-08-28] MEDS: Nystatin SUSP 5 ML UD.LIQ PO SCH ×4 (08:20→19:58)
[2020-08-28] MEDS: Nystatin POWDER 30 GM BOTTLE TP SCH ×3 (08:20→19:59)
[2020-08-28] MEDS: Aspirin 81 MG TAB.CHEW PO SCH (08:20)
[2020-08-28] MEDS: Cholecalciferol (D-3) 1,000 UNIT (25MCG) TABLET PO SCH (08:20)
[2020-08-28] MEDS: Furosemide 20 MG TABLET PO SCH (08:20)
[2020-08-28] MEDS: Metoprolol XL (24 HR) Succ 25 MG TAB.ER.24H PO SCH (08:20)
[2020-08-28] MEDS: (Cranberry 500 MG Capsule) PO SCH ×2 (08:21→19:59)
[2020-08-29] MEDS: *HR* Enoxaparin 30 MG/0.3 ML SYRINGE SQ SCH (05:43)
[2020-08-29 08:02] LABS: Basophils % 1.1 %; Eosinophils # 0.8 K/mcL (0.0-0.6); Eosinophils % 5.8 %; Hematocrit 34.3 % (35.3-44.9); Hemoglobin 10.3 g/dL (11.5-15.4); Immature Granulocytes % 3.3 % (0-4); Lymphocytes # 3.4 K/mcL (0.6-4.6); Lymphocytes % 25.9 %; Mean Corpuscular Hemoglobin 28.2 pg (28.0-33.3); Mean Platelet Volume 9.8 fL (9.4-12.4); Monocytes % 7.2 %; Neutrophils # 7.5 K/mcL (1.6-8.9); Platelet Count 415 K/mcL (140-400); Red Blood Count 3.65 M/mcL (3.82-4.97); Red Cell Distribution Width 17.3 % (11.5-14.5); Segmented Neutrophils % 56.7 %; White Blood Count 13.3 K/mcL (4.3-11.1)
[2020-08-29 08:12] LABS: Basophils # 0.2 K/mcL (0.0-0.2)
[2020-08-29 08:24] LABS: Calcium 8.8 mg/dL (8.6-10.3)
[2020-08-29] MEDS: Cholecalciferol (D-3) 1,000 UNIT (25MCG) TABLET PO SCH (10:05)
[2020-08-29] MEDS: Aspirin 81 MG TAB.CHEW PO SCH (10:05)
[2020-08-29] MEDS: Furosemide 20 MG TABLET PO SCH (10:05)
[2020-08-29] MEDS: Metoprolol XL (24 HR) Succ 25 MG TAB.ER.24H PO SCH (10:05)
[2020-08-29] MEDS: Multivit/Ca/Min/Fe/FA 1 TAB TABLET PO SCH (10:05)
[2020-08-29] MEDS: Nystatin POWDER 30 GM BOTTLE TP SCH ×3 (10:06→20:21)
[2020-08-29] MEDS: Nystatin SUSP 5 ML UD.LIQ PO SCH ×4 (10:06→20:20)
[2020-08-29] MEDS: (Cranberry 500 MG Capsule) PO SCH ×2 (10:06→20:21)
[2020-08-29] MEDS: Acetaminophen 325 MG TABLET PO PRN (14:17)
[2020-08-30] MEDS: *HR* Enoxaparin 30 MG/0.3 ML SYRINGE SQ SCH (05:32)
[2020-08-30] MEDS: Nystatin SUSP 5 ML UD.LIQ PO SCH ×4 (09:53→21:20)
[2020-08-30] MEDS: Multivit/Ca/Min/Fe/FA 1 TAB TABLET PO SCH (09:54)
[2020-08-30] MEDS: Metoprolol XL (24 HR) Succ 25 MG TAB.ER.24H PO SCH (09:54)
[2020-08-30] MEDS: Nystatin POWDER 30 GM BOTTLE TP SCH ×3 (09:54→21:21)
[2020-08-30] MEDS: Aspirin 81 MG TAB.CHEW PO SCH (09:54)
[2020-08-30] MEDS: Cholecalciferol (D-3) 1,000 UNIT (25MCG) TABLET PO SCH (09:54)
[2020-08-30] MEDS: Furosemide 20 MG TABLET PO SCH (09:54)
[2020-08-30] MEDS: (Cranberry 500 MG Capsule) PO SCH ×2 (09:55→21:25)
[2020-08-31] MEDS: *HR* Enoxaparin 30 MG/0.3 ML SYRINGE SQ SCH (06:27)
[2020-08-31] MEDS: Aspirin 81 MG TAB.CHEW PO SCH (08:55)
[2020-08-31] MEDS: Multivit/Ca/Min/Fe/FA 1 TAB TABLET PO SCH (08:55)
[2020-08-31] MEDS: Nystatin SUSP 5 ML UD.LIQ PO SCH ×4 (08:55→20:30)
[2020-08-31] MEDS: Cholecalciferol (D-3) 1,000 UNIT (25MCG) TABLET PO SCH (08:57)
[2020-08-31] MEDS: Furosemide 20 MG TABLET PO SCH (08:57)
[2020-08-31] MEDS: Metoprolol XL (24 HR) Succ 25 MG TAB.ER.24H PO SCH (08:58)
[2020-08-31] MEDS: (Cranberry 500 MG Capsule) PO SCH ×2 (09:45→20:31)
[2020-08-31] MEDS: Nystatin POWDER 30 GM BOTTLE TP SCH ×3 (10:29→20:31)
[2020-09-01] MEDS: *HR* Enoxaparin 30 MG/0.3 ML SYRINGE SQ SCH (06:13)
[2020-09-01] MEDS: Aspirin 81 MG TAB.CHEW PO SCH (08:46)
[2020-09-01] MEDS: Multivit/Ca/Min/Fe/FA 1 TAB TABLET PO SCH (08:46)
[2020-09-01] MEDS: Cholecalciferol (D-3) 1,000 UNIT (25MCG) TABLET PO SCH (08:46)
[2020-09-01] MEDS: Metoprolol XL (24 HR) Succ 25 MG TAB.ER.24H PO SCH (08:46)
[2020-09-01] MEDS: Nystatin SUSP 5 ML UD.LIQ PO SCH ×4 (08:47→21:07)
[2020-09-01] MEDS: Furosemide 20 MG TABLET PO SCH (08:47)
[2020-09-01] MEDS: (Cranberry 500 MG Capsule) PO SCH ×2 (08:48→21:07)
[2020-09-01] MEDS: Nystatin POWDER 30 GM BOTTLE TP SCH ×3 (08:48→21:07)
[2020-09-01] MEDS: Ergocalciferol (VIT D2) 50,000 UNIT (1.25MG) CAP PO SCH (08:49)
[2020-09-01] MEDS: Acetaminophen 325 MG TABLET PO PRN (11:30)
[2020-09-02] MEDS: *HR* Enoxaparin 30 MG/0.3 ML SYRINGE SQ SCH (05:33)
[2020-09-02] MEDS: Cholecalciferol (D-3) 1,000 UNIT (25MCG) TABLET PO SCH (08:38)
[2020-09-02] MEDS: Multivit/Ca/Min/Fe/FA 1 TAB TABLET PO SCH (08:38)
[2020-09-02] MEDS: Nystatin SUSP 5 ML UD.LIQ PO SCH ×4 (08:38→20:10)
[2020-09-02] MEDS: Nystatin POWDER 30 GM BOTTLE TP SCH ×3 (08:39→20:13)
[2020-09-02] MEDS: Metoprolol XL (24 HR) Succ 25 MG TAB.ER.24H PO SCH (08:39)
[2020-09-02] MEDS: Aspirin 81 MG TAB.CHEW PO SCH (08:39)
[2020-09-02] MEDS: Furosemide 20 MG TABLET PO SCH (08:39)
[2020-09-02] MEDS: (Cranberry 500 MG Capsule) PO SCH ×2 (08:39→20:12)
[2020-09-03] MEDS: *HR* Enoxaparin 30 MG/0.3 ML SYRINGE SQ SCH (05:23)
[2020-09-03] MEDS: Nystatin SUSP 5 ML UD.LIQ PO SCH ×4 (08:53→21:07)
[2020-09-03] MEDS: Multivit/Ca/Min/Fe/FA 1 TAB TABLET PO SCH (08:54)
[2020-09-03] MEDS: Furosemide 20 MG TABLET PO SCH (08:55)
[2020-09-03] MEDS: Metoprolol XL (24 HR) Succ 25 MG TAB.ER.24H PO SCH (08:55)
[2020-09-03] MEDS: Aspirin 81 MG TAB.CHEW PO SCH (08:57)
[2020-09-03] MEDS: Cholecalciferol (D-3) 1,000 UNIT (25MCG) TABLET PO SCH (08:58)
[2020-09-03] MEDS: (Cranberry 500 MG Capsule) PO SCH ×2 (08:58→21:06)
[2020-09-03] MEDS: Nystatin POWDER 30 GM BOTTLE TP PRN ×2 (10:13→18:51)
[2020-09-03] MEDS: Acetaminophen 325 MG TABLET PO PRN (10:16)
[2020-09-04] MEDS: *HR* Enoxaparin 30 MG/0.3 ML SYRINGE SQ SCH (06:32)
[2020-09-04] MEDS: (Cranberry 500 MG Capsule) PO SCH ×2 (08:31→20:03)
[2020-09-04] MEDS: Multivit/Ca/Min/Fe/FA 1 TAB TABLET PO SCH (08:32)
[2020-09-04] MEDS: Nystatin SUSP 5 ML UD.LIQ PO SCH ×4 (08:32→20:02)
[2020-09-04] MEDS: Aspirin 81 MG TAB.CHEW PO SCH (08:32)
[2020-09-04] MEDS: Cholecalciferol (D-3) 1,000 UNIT (25MCG) TABLET PO SCH (08:33)
[2020-09-04] MEDS: Metoprolol XL (24 HR) Succ 25 MG TAB.ER.24H PO SCH (08:33)
[2020-09-04] MEDS: Furosemide 20 MG TABLET PO SCH (08:34)
[2020-09-04] MEDS: Nystatin POWDER 30 GM BOTTLE TP PRN (11:27)
[2020-09-05] MEDS: *HR* Enoxaparin 30 MG/0.3 ML SYRINGE SQ SCH (06:26)
[2020-09-05] MEDS: Acetaminophen 325 MG TABLET PO PRN (08:04)
[2020-09-05] MEDS: Metoprolol XL (24 HR) Succ 25 MG TAB.ER.24H PO SCH (08:05)
[2020-09-05] MEDS: Aspirin 81 MG TAB.CHEW PO SCH (08:05)
[2020-09-05] MEDS: Cholecalciferol (D-3) 1,000 UNIT (25MCG) TABLET PO SCH (08:05)
[2020-09-05] MEDS: Multivit/Ca/Min/Fe/FA 1 TAB TABLET PO SCH (08:05)
[2020-09-05] MEDS: Furosemide 20 MG TABLET PO SCH (08:06)
[2020-09-05] MEDS: (Cranberry 500 MG Capsule) PO SCH ×2 (08:06→19:49)
[2020-09-05] MEDS: Nystatin SUSP 5 ML UD.LIQ PO SCH ×4 (08:06→19:47)
[2020-09-05 09:54] LABS: Hematocrit 35.2 % (35.3-44.9); Hemoglobin 10.9 g/dL (11.5-15.4); Mean Corpuscular Hemoglobin 28.7 pg (28.0-33.3); Mean Corpuscular Volume 92.6 fL (83.0-100.0); Platelet Count 283 K/mcL (140-400); Red Cell Distribution Width 16.9 % (11.5-14.5); White Blood Count 13.8 K/mcL (4.3-11.1)
[2020-09-05 10:02] LABS: Calcium 8.2 mg/dL (8.6-10.3); Potassium 3.9 mEq/L (3.5-5.1)
[2020-09-05 12:36] LABS: Adenovirus Not Detected (Not Detect); Bordetella Pertussis Not Detected (Not Detect); Chlamydophila pneumoniae Not Detected (Not Detect); Coronavirus 229E Not Detected (Not Detect); Coronavirus HKU1 Not Detected (Not Detect); Coronavirus NL63 Not Detected (Not Detect); Coronavirus OC43 Not Detected (Not Detect); Human Metapneumovirus Not Detected (Not Detect); Human Rhinovirus/Enterovirus Not Detected (Not Detect); Influenza A Subtype 2009 H1 Not Detected (Not Detect); Influenza B Not Detected (Not Detect); Mycoplasma pneumoniae Not Detected (Not Detect); Parainfluenza Virus 1 Not Detected (Not Detect); Parainfluenza Virus 2 Not Detected (Not Detect); Parainfluenza Virus 3 Not Detected (Not Detect); Parainfluenza Virus 4 Not Detected (Not Detect); Respiratory Syncytial Virus Not Detected (Not Detect); SARS-CoV-2 Not Detected (Not Detect)
[2020-09-06] MEDS: *HR* Enoxaparin 30 MG/0.3 ML SYRINGE SQ SCH (05:17)
[2020-09-06] MEDS: Furosemide 20 MG TABLET PO SCH (08:19)
[2020-09-06] MEDS: (Cranberry 500 MG Capsule) PO SCH ×2 (08:19→20:20)
[2020-09-06] MEDS: Multivit/Ca/Min/Fe/FA 1 TAB TABLET PO SCH (08:19)
[2020-09-06] MEDS: Nystatin SUSP 5 ML UD.LIQ PO SCH ×4 (08:19→20:17)
[2020-09-06] MEDS: Aspirin 81 MG TAB.CHEW PO SCH (08:19)
[2020-09-06] MEDS: Metoprolol XL (24 HR) Succ 25 MG TAB.ER.24H PO SCH (08:20)
[2020-09-06] MEDS: Cholecalciferol (D-3) 1,000 UNIT (25MCG) TABLET PO SCH (08:20)
[2020-09-07] MEDS: *HR* Enoxaparin 30 MG/0.3 ML SYRINGE SQ SCH (05:44)
[2020-09-07] MEDS: Nystatin SUSP 5 ML UD.LIQ PO SCH (08:58)
[2020-09-07] MEDS: Aspirin 81 MG TAB.CHEW PO SCH (08:59)
[2020-09-07] MEDS: Furosemide 20 MG TABLET PO SCH (08:59)
[2020-09-07] MEDS: Metoprolol XL (24 HR) Succ 25 MG TAB.ER.24H PO SCH (09:00)
[2020-09-07] MEDS: Multivit/Ca/Min/Fe/FA 1 TAB TABLET PO SCH (09:11)
[2020-09-07] MEDS: (Cranberry 500 MG Capsule) PO SCH (09:11)
[2020-09-07] MEDS: Cholecalciferol (D-3) 1,000 UNIT (25MCG) TABLET PO SCH (09:12)
[2020-09-07] MEDS: Acetaminophen 325 MG TABLET PO PRN (15:48)
[2020-09-08] MEDS: *HR* Enoxaparin 30 MG/0.3 ML SYRINGE SQ SCH (05:24)
[2020-09-08] MEDS: Metoprolol XL (24 HR) Succ 25 MG TAB.ER.24H PO SCH (10:32)
[2020-09-08] MEDS: Cholecalciferol (D-3) 1,000 UNIT (25MCG) TABLET PO SCH (10:33)
[2020-09-08] MEDS: Aspirin 81 MG TAB.CHEW PO SCH (10:33)
[2020-09-08] MEDS ORDERED: Famotidine 20 MG/2 ML VIAL IVP ONE (14:15)
[2020-09-08] MEDS ORDERED: Acetaminophen IV 1,000 MG/100 ML BAG IVPB ONE (14:15)
[2020-09-08] MEDS ORDERED: Acetaminophen 325 MG TABLET PO PRN (14:23)
[2020-09-09] MEDS: *HR* Enoxaparin 30 MG/0.3 ML SYRINGE SQ SCH (05:05)
[2020-09-09] MEDS: Aspirin 81 MG TAB.CHEW PO SCH (07:37)
[2020-09-09] MEDS: Metoprolol XL (24 HR) Succ 25 MG TAB.ER.24H PO SCH (07:37)
[2020-09-09] MEDS: Cholecalciferol (D-3) 1,000 UNIT (25MCG) TABLET PO SCH (07:37)
[2020-09-09] MEDS ORDERED: Simethicone 80 MG TAB.CHEW PO PRN (10:10)
[2020-09-09] MEDS: (Cranberry 500 MG Capsule) PO SCH (19:56)
[2020-09-10] MEDS: *HR* Enoxaparin 30 MG/0.3 ML SYRINGE SQ SCH (06:31)
[2020-09-10] MEDS: Metoprolol XL (24 HR) Succ 25 MG TAB.ER.24H PO SCH (07:56)
[2020-09-10] MEDS: Multivit/Ca/Min/Fe/FA 1 TAB TABLET PO SCH (07:56)
[2020-09-10] MEDS: Cholecalciferol (D-3) 1,000 UNIT (25MCG) TABLET PO SCH (07:57)
[2020-09-10] MEDS: Furosemide 20 MG TABLET PO SCH (07:57)
[2020-09-10] MEDS: Aspirin 81 MG TAB.CHEW PO SCH (07:57)
[2020-09-10] MEDS: (Cranberry 500 MG Capsule) PO SCH ×2 (08:02→20:06)
[2020-09-11] MEDS ORDERED: *HR* Enoxaparin 40 MG/0.4 ML SYRINGE SQ SCH (06:00)
[2020-09-11] MEDS: Furosemide 20 MG TABLET PO SCH (08:54)
[2020-09-11] MEDS: (Cranberry 500 MG Capsule) PO SCH ×2 (08:54→19:52)
[2020-09-11] MEDS: Multivit/Ca/Min/Fe/FA 1 TAB TABLET PO SCH (08:55)
[2020-09-11] MEDS: Cholecalciferol (D-3) 1,000 UNIT (25MCG) TABLET PO SCH (08:55)
[2020-09-11] MEDS: Metoprolol XL (24 HR) Succ 25 MG TAB.ER.24H PO SCH (08:55)
[2020-09-11] MEDS: Aspirin 81 MG TAB.CHEW PO SCH (08:55)
[2020-09-12] MEDS ORDERED: *HR* Enoxaparin 30 MG/0.3 ML SYRINGE SQ SCH (06:00)
[2020-09-12 06:40] VITALS: BP 124/80
[2020-09-12 07:39] LABS: Basophils # 0.1 K/mcL (0.0-0.2); Basophils % 0.9 %; Eosinophils # 0.6 K/mcL (0.0-0.6); Hematocrit 38.2 % (35.3-44.9); Hemoglobin 11.5 g/dL (11.5-15.4); Immature Granulocytes % 2.3 % (0-4); Lymphocytes # 2.9 K/mcL (0.6-4.6); Lymphocytes % 19.4 %; Mean Corpuscular HGB Conc 30.1 g/dL (31.6-35.5); Mean Corpuscular Hemoglobin 29.2 pg (28.0-33.3); Mean Platelet Volume 11.7 fL (9.4-12.4); Monocytes % 6.4 %; Platelet Count 221 K/mcL (140-400); Red Blood Count 3.94 M/mcL (3.82-4.97); Red Cell Distribution Width 17.2 % (11.5-14.5); White Blood Count 14.9 K/mcL (4.3-11.1)
[2020-09-12 07:51] LABS: Calcium 8.2 mg/dL (8.6-10.3); Potassium 4.2 mEq/L (3.5-5.1)
[2020-09-12] MEDS: Furosemide 20 MG TABLET PO SCH (09:01)
[2020-09-12] MEDS: Metoprolol XL (24 HR) Succ 25 MG TAB.ER.24H PO SCH (09:01)
[2020-09-12] MEDS: Multivit/Ca/Min/Fe/FA 1 TAB TABLET PO SCH (09:01)
[2020-09-12] MEDS: Cholecalciferol (D-3) 1,000 UNIT (25MCG) TABLET PO SCH (09:01)
[2020-09-12] MEDS: Aspirin 81 MG TAB.CHEW PO SCH (09:01)
[2020-09-12] MEDS: (Cranberry 500 MG Capsule) PO SCH (09:03)
== END 2020-09-12 16:00 | disposition home health service (06) | DRG 945 ==
LOC: INPPIK 23:42
PROVIDERS: ADMIT Family Medicine; ATTEND Family Medicine

== ENCOUNTER 2021-01-04 18:02 | Inpatient (IN) ==
[2021-01-04] MEDS ORDERED: SUMAtriptan succinate 25 MG TABLET PO PRN (18:17)
[2021-01-05] MEDS: Acetaminophen 325 MG TABLET PO PRN (05:04)
[2021-01-05] MEDS ORDERED: *HR* Enoxaparin 40 MG/0.4 ML SYRINGE SQ SCH (06:00)
[2021-01-05 06:21] LABS: Basophils # 0.1 K/mcL (0.0-0.2); Basophils % 0.9 %; Eosinophils # 0.3 K/mcL (0.0-0.6); Eosinophils % 2.4 %; Hematocrit 32.8 % (35.3-44.9); Immature Granulocytes % 2.8 % (0-4); Lymphocytes # 2.5 K/mcL (0.6-4.6); Lymphocytes % 20.5 %; Mean Corpuscular HGB Conc 30.5 g/dL (31.6-35.5); Mean Corpuscular Hemoglobin 28.7 pg (28.0-33.3); Mean Corpuscular Volume 94.3 fL (83.0-100.0); Mean Platelet Volume 9.8 fL (9.4-12.4); Monocytes # 1.1 K/mcL (0.0-1.3); Monocytes % 9.1 %; Neutrophils # 7.9 K/mcL (1.6-8.9); Nucleated Red Blood Cells 0.2 /100 WBC (0); Platelet Count 315 K/mcL (140-400); Red Blood Count 3.48 M/mcL (3.82-4.97); Segmented Neutrophils % 64.3 %; White Blood Count 12.3 K/mcL (4.3-11.1)
[2021-01-05 08:02] LABS: Calcium 7.7 mg/dL (8.6-10.3); Potassium 3.2 mEq/L (3.5-5.1)
[2021-01-05] MEDS: Magnesium Oxide 400 MG TABLET PO SCH (08:44)
[2021-01-05] MEDS: Lactobacillus 1 EACH CAP.SPRINK PO SCH (08:44)
[2021-01-05] MEDS: lisinopriL 20 MG TABLET PO SCH (08:45)
[2021-01-05] MEDS ORDERED: Aspirin 81 MG TAB.CHEW PO SCH (09:00)
[2021-01-05] MEDS ORDERED: Multivit/Ca/Min/Fe/FA 1 TAB TABLET PO SCH (09:00)
[2021-01-05] MEDS ORDERED: Metoprolol XL (24 HR) Succ 25 MG TAB.ER.24H PO SCH (09:00)
[2021-01-05] MEDS ORDERED: Cholecalciferol (D-3) 1,000 UNIT (25MCG) TABLET PO SCH (09:00)
[2021-01-05] MEDS ORDERED: Potassium Chloride Elixir 20 MEQ/15 ML UDC PO ONE (12:01)
[2021-01-05] MEDS ORDERED: Ergocalciferol (VIT D2) 50,000 UNIT (1.25MG) CAP PO SCH (18:30)
[2021-01-05] MEDS: Ondansetron ODT 4 MG TAB.RAPDIS PO ONE ×2 (20:35→20:47)
[2021-01-06] MEDS: Acetaminophen 325 MG TABLET PO PRN (01:41)
[2021-01-06] MEDS: *HR* Enoxaparin 30 MG/0.3 ML SYRINGE SQ SCH (06:10)
[2021-01-06] MEDS: Lactobacillus 1 EACH CAP.SPRINK PO SCH (08:05)
[2021-01-06] MEDS: lisinopriL 20 MG TABLET PO SCH (08:06)
[2021-01-06] MEDS: Magnesium Oxide 400 MG TABLET PO SCH (08:06)
[2021-01-06] MEDS: Aspirin 81 MG TAB.CHEW PO SCH (08:06)
[2021-01-07] MEDS: *HR* Enoxaparin 30 MG/0.3 ML SYRINGE SQ SCH (05:32)
[2021-01-07] MEDS: Magnesium Oxide 400 MG TABLET PO SCH (09:12)
[2021-01-07] MEDS: Lactobacillus 1 EACH CAP.SPRINK PO SCH (09:12)
[2021-01-07] MEDS: Aspirin 81 MG TAB.CHEW PO SCH (09:12)
[2021-01-07] MEDS: lisinopriL 20 MG TABLET PO SCH (09:13)
[2021-01-07] MEDS: Sennosides/Docusate Sodium TABLET PO SCH ×2 (12:11→19:36)
[2021-01-07] MEDS: Ondansetron ODT 4 MG TAB.RAPDIS SL PRN (15:35)
[2021-01-08] MEDS: *HR* Enoxaparin 30 MG/0.3 ML SYRINGE SQ SCH (06:07)
[2021-01-08] MEDS: lisinopriL 20 MG TABLET PO SCH (10:19)
[2021-01-08] MEDS: Aspirin 81 MG TAB.CHEW PO SCH (10:19)
[2021-01-08] MEDS: Sennosides/Docusate Sodium TABLET PO SCH ×2 (10:20→21:34)
[2021-01-08] MEDS: Magnesium Oxide 400 MG TABLET PO SCH (10:20)
[2021-01-08] MEDS: Lactobacillus 1 EACH CAP.SPRINK PO SCH (10:20)
[2021-01-08] MEDS: Ondansetron ODT 4 MG TAB.RAPDIS SL PRN (12:50)
[2021-01-09] MEDS: *HR* Enoxaparin 30 MG/0.3 ML SYRINGE SQ SCH (05:18)
[2021-01-09 06:54] LABS: Basophils # 0.1 K/mcL (0.0-0.2); Basophils % 0.7 %; Eosinophils # 0.2 K/mcL (0.0-0.6); Eosinophils % 1.5 %; Hemoglobin 10.4 g/dL (11.5-15.4); Immature Granulocytes % 2.2 % (0-4); Lymphocytes # 2.4 K/mcL (0.6-4.6); Lymphocytes % 19.6 %; Mean Corpuscular HGB Conc 29.7 g/dL (31.6-35.5); Mean Corpuscular Volume 97.5 fL (83.0-100.0); Mean Platelet Volume 10.6 fL (9.4-12.4); Monocytes % 8.4 %; Platelet Count 371 K/mcL (140-400); Red Blood Count 3.59 M/mcL (3.82-4.97); Red Cell Distribution Width 17.2 % (11.5-14.5); Segmented Neutrophils % 67.6 %; White Blood Count 12.4 K/mcL (4.3-11.1)
[2021-01-09 07:02] LABS: Neutrophils # 8.4 K/mcL (1.6-8.9)
[2021-01-09 07:21] LABS: Calcium 8.5 mg/dL (8.6-10.3); Magnesium 1.8 mg/dL (1.6-2.6); Potassium 5.6 mEq/L (3.5-5.1)
[2021-01-09] MEDS: Lactobacillus 1 EACH CAP.SPRINK PO SCH (08:59)
[2021-01-09] MEDS: Aspirin 81 MG TAB.CHEW PO SCH (08:59)
[2021-01-09] MEDS: Magnesium Oxide 400 MG TABLET PO SCH (08:59)
[2021-01-09] MEDS: Sennosides/Docusate Sodium TABLET PO SCH ×2 (09:00→20:36)
[2021-01-10] MEDS: *HR* Enoxaparin 30 MG/0.3 ML SYRINGE SQ SCH (05:40)
[2021-01-10] MEDS: Lactobacillus 1 EACH CAP.SPRINK PO SCH (09:26)
[2021-01-10] MEDS: Magnesium Oxide 400 MG TABLET PO SCH (09:26)
[2021-01-10] MEDS: Aspirin 81 MG TAB.CHEW PO SCH (09:26)
[2021-01-10] MEDS: Sennosides/Docusate Sodium TABLET PO SCH ×2 (09:26→19:43)
[2021-01-10 15:12] LABS: Potassium 4.5 mEq/L (3.5-5.1)
[2021-01-11] MEDS: *HR* Enoxaparin 30 MG/0.3 ML SYRINGE SQ SCH (05:27)
[2021-01-11] MEDS: Sennosides/Docusate Sodium TABLET PO SCH ×2 (09:08→19:41)
[2021-01-11] MEDS: Aspirin 81 MG TAB.CHEW PO SCH (09:08)
[2021-01-11] MEDS: Magnesium Oxide 400 MG TABLET PO SCH (09:09)
[2021-01-11] MEDS: Lactobacillus 1 EACH CAP.SPRINK PO SCH (09:09)
[2021-01-11] MEDS: Acetaminophen 325 MG TABLET PO PRN (09:14)
[2021-01-12] MEDS: Acetaminophen 325 MG TABLET PO PRN ×2 (01:13→22:16)
[2021-01-12] MEDS: *HR* Enoxaparin 30 MG/0.3 ML SYRINGE SQ SCH (06:23)
[2021-01-12] MEDS: Magnesium Oxide 400 MG TABLET PO SCH (08:00)
[2021-01-12] MEDS: Sennosides/Docusate Sodium TABLET PO SCH ×2 (08:00→19:46)
[2021-01-12] MEDS: Aspirin 81 MG TAB.CHEW PO SCH (08:00)
[2021-01-12] MEDS: Lactobacillus 1 EACH CAP.SPRINK PO SCH (08:00)
[2021-01-13] MEDS: *HR* Enoxaparin 30 MG/0.3 ML SYRINGE SQ SCH (05:34)
[2021-01-13] MEDS: Acetaminophen 325 MG TABLET PO PRN ×2 (07:38→15:24)
[2021-01-13] MEDS: Aspirin 81 MG TAB.CHEW PO SCH (07:38)
[2021-01-13] MEDS: Lactobacillus 1 EACH CAP.SPRINK PO SCH (07:38)
[2021-01-13] MEDS: Sennosides/Docusate Sodium TABLET PO SCH ×2 (07:38→19:35)
[2021-01-13] MEDS: Magnesium Oxide 400 MG TABLET PO SCH (07:39)
[2021-01-13] MEDS ORDERED: traZODone 50 MG TABLET PO PRN (11:01)
[2021-01-14] MEDS ORDERED: *HR* LORazepam 2 MG/ML VIAL IVP ONE ×2 (03:13→03:51)
[2021-01-14] MEDS: *HR* Enoxaparin 30 MG/0.3 ML SYRINGE SQ SCH (04:05)
[2021-01-14] MEDS: Sennosides/Docusate Sodium TABLET PO SCH ×2 (08:01→19:45)
[2021-01-14] MEDS: Lactobacillus 1 EACH CAP.SPRINK PO SCH (08:01)
[2021-01-14] MEDS: Aspirin 81 MG TAB.CHEW PO SCH (08:01)
[2021-01-14] MEDS: Acetaminophen 325 MG TABLET PO PRN (08:01)
[2021-01-14] MEDS: Magnesium Oxide 400 MG TABLET PO SCH (08:02)
[2021-01-14 08:21] LABS: Basophils # 0.1 K/mcL (0.0-0.2); Basophils % 0.9 %; Eosinophils # 0.2 K/mcL (0.0-0.6); Eosinophils % 2.7 %; Hemoglobin 10.9 g/dL (11.5-15.4); Immature Granulocytes % 0.7 % (0-4); Lymphocytes # 1.9 K/mcL (0.6-4.6); Lymphocytes % 22.7 %; Mean Corpuscular HGB Conc 30.3 g/dL (31.6-35.5); Mean Corpuscular Hemoglobin 28.8 pg (28.0-33.3); Mean Platelet Volume 10.4 fL (9.4-12.4); Monocytes # 0.7 K/mcL (0.0-1.3); Neutrophils # 5.3 K/mcL (1.6-8.9); Platelet Count 318 K/mcL (140-400); Red Blood Count 3.79 M/mcL (3.82-4.97); Red Cell Distribution Width 16.2 % (11.5-14.5); White Blood Count 8.2 K/mcL (4.3-11.1)
[2021-01-14 08:42] LABS: Calcium 8.8 mg/dL (8.6-10.3); Potassium 4.4 mEq/L (3.5-5.1)
[2021-01-14] MEDS: Ondansetron ODT 4 MG TAB.RAPDIS SL PRN (10:51)
[2021-01-15] MEDS: *HR* Enoxaparin 30 MG/0.3 ML SYRINGE SQ SCH (05:03)
[2021-01-15] MEDS: Lactobacillus 1 EACH CAP.SPRINK PO SCH (07:55)
[2021-01-15] MEDS: Aspirin 81 MG TAB.CHEW PO SCH (07:55)
[2021-01-15] MEDS: Acetaminophen 325 MG TABLET PO PRN (07:56)
[2021-01-15] MEDS: Sennosides/Docusate Sodium TABLET PO SCH ×2 (07:57→20:35)
[2021-01-15] MEDS: Magnesium Oxide 400 MG TABLET PO SCH (07:57)
[2021-01-16] MEDS: *HR* Enoxaparin 30 MG/0.3 ML SYRINGE SQ SCH (05:45)
[2021-01-16] MEDS: Aspirin 81 MG TAB.CHEW PO SCH (08:28)
[2021-01-16] MEDS: Lactobacillus 1 EACH CAP.SPRINK PO SCH (08:28)
[2021-01-16] MEDS: Magnesium Oxide 400 MG TABLET PO SCH (08:28)
[2021-01-16] MEDS: Sennosides/Docusate Sodium TABLET PO SCH (08:29)
[2021-01-16] MEDS: Ondansetron ODT 4 MG TAB.RAPDIS SL PRN (19:47)
[2021-01-16] MEDS: Acetaminophen 325 MG TABLET PO PRN (19:49)
[2021-01-16] MEDS ORDERED: Pantoprazole 40 MG VIAL IVP ONE (23:13)
[2021-01-16] MEDS ORDERED: Ondansetron 4 MG/2 ML VIAL IVP ONE (23:13)
[2021-01-17] MEDS: Acetaminophen 325 MG TABLET PO PRN ×2 (04:25→18:00)
[2021-01-17] MEDS: *HR* Enoxaparin 30 MG/0.3 ML SYRINGE SQ SCH (04:26)
[2021-01-17] MEDS: Aspirin 81 MG TAB.CHEW PO SCH (08:49)
[2021-01-17] MEDS: Magnesium Oxide 400 MG TABLET PO SCH (08:49)
[2021-01-17] MEDS: Lactobacillus 1 EACH CAP.SPRINK PO SCH (08:50)
[2021-01-17] MEDS ORDERED: Simethicone 80 MG TAB.CHEW PO PRN (10:12)
[2021-01-17] MEDS ORDERED: Mag Hydrox/Al Hydrox/Simeth 30 ML UDC PO PRN (14:43)
[2021-01-18] MEDS: *HR* Enoxaparin 30 MG/0.3 ML SYRINGE SQ SCH (06:34)
[2021-01-18 07:31] LABS: Basophils # 0.1 K/mcL (0.0-0.2); Basophils % 1.1 %; Eosinophils # 0.2 K/mcL (0.0-0.6); Eosinophils % 2.3 %; Hematocrit 36.8 % (35.3-44.9); Hemoglobin 11.2 g/dL (11.5-15.4); Immature Granulocytes % 0.8 % (0-4); Lymphocytes # 1.9 K/mcL (0.6-4.6); Lymphocytes % 25.4 %; Mean Corpuscular HGB Conc 30.4 g/dL (31.6-35.5); Mean Corpuscular Hemoglobin 28.6 pg (28.0-33.3); Mean Corpuscular Volume 94.1 fL (83.0-100.0); Monocytes # 0.6 K/mcL (0.0-1.3); Neutrophils # 4.7 K/mcL (1.6-8.9); Platelet Count 275 K/mcL (140-400); Red Blood Count 3.91 M/mcL (3.82-4.97); Red Cell Distribution Width 15.8 % (11.5-14.5); Segmented Neutrophils % 62.4 %; White Blood Count 7.5 K/mcL (4.3-11.1)
[2021-01-18 07:45] LABS: Calcium 9.1 mg/dL (8.6-10.3); Magnesium 1.7 mg/dL (1.6-2.6); Potassium 4.1 mEq/L (3.5-5.1)
[2021-01-18] MEDS: Magnesium Oxide 400 MG TABLET PO SCH (08:09)
[2021-01-18] MEDS: Lactobacillus 1 EACH CAP.SPRINK PO SCH (08:10)
[2021-01-18] MEDS: Aspirin 81 MG TAB.CHEW PO SCH (08:10)
[2021-01-18] MEDS: Sennosides/Docusate Sodium TABLET PO SCH ×2 (09:59→19:36)
[2021-01-19] MEDS: *HR* Enoxaparin 30 MG/0.3 ML SYRINGE SQ SCH (05:52)
[2021-01-19 07:50] LABS: Basophils # 0.1 K/mcL (0.0-0.2); Basophils % 0.8 %; Eosinophils # 0.2 K/mcL (0.0-0.6); Eosinophils % 2.3 %; Hemoglobin 10.7 g/dL (11.5-15.4); Immature Granulocytes % 0.8 % (0-4); Lymphocytes % 28.7 %; Mean Corpuscular HGB Conc 30.6 g/dL (31.6-35.5); Mean Corpuscular Hemoglobin 28.9 pg (28.0-33.3); Mean Corpuscular Volume 94.6 fL (83.0-100.0); Mean Platelet Volume 10.5 fL (9.4-12.4); Monocytes # 0.6 K/mcL (0.0-1.3); Monocytes % 7.9 %; Neutrophils # 4.2 K/mcL (1.6-8.9); Platelet Count 247 K/mcL (140-400); Red Cell Distribution Width 15.8 % (11.5-14.5); Segmented Neutrophils % 59.5 %; White Blood Count 7.1 K/mcL (4.3-11.1)
[2021-01-19 08:14] LABS: Potassium 3.9 mEq/L (3.5-5.1)
[2021-01-19] MEDS: Magnesium Oxide 400 MG TABLET PO SCH (10:07)
[2021-01-19] MEDS: Acetaminophen 325 MG TABLET PO PRN (10:07)
[2021-01-19] MEDS: Aspirin 81 MG TAB.CHEW PO SCH (10:07)
[2021-01-19] MEDS: Lactobacillus 1 EACH CAP.SPRINK PO SCH (10:07)
[2021-01-19] MEDS: Sennosides/Docusate Sodium TABLET PO SCH ×2 (11:58→19:47)
[2021-01-20] MEDS: *HR* Enoxaparin 30 MG/0.3 ML SYRINGE SQ SCH (05:42)
[2021-01-20] MEDS: Sennosides/Docusate Sodium TABLET PO SCH ×2 (08:55→19:42)
[2021-01-20] MEDS: Lactobacillus 1 EACH CAP.SPRINK PO SCH (08:55)
[2021-01-20] MEDS: Aspirin 81 MG TAB.CHEW PO SCH (08:55)
[2021-01-20] MEDS: Magnesium Oxide 400 MG TABLET PO SCH (08:55)
[2021-01-20] MEDS: Acetaminophen 325 MG TABLET PO PRN (20:32)
[2021-01-21] MEDS: *HR* Enoxaparin 30 MG/0.3 ML SYRINGE SQ SCH (05:03)
[2021-01-21] MEDS: Lactobacillus 1 EACH CAP.SPRINK PO SCH (08:39)
[2021-01-21] MEDS: Magnesium Oxide 400 MG TABLET PO SCH (08:39)
[2021-01-21] MEDS: Sennosides/Docusate Sodium TABLET PO SCH ×2 (08:39→19:47)
[2021-01-21] MEDS: Aspirin 81 MG TAB.CHEW PO SCH (08:39)
[2021-01-22] MEDS: *HR* Enoxaparin 30 MG/0.3 ML SYRINGE SQ SCH (05:32)
[2021-01-22 06:52] LABS: Calcium 8.6 mg/dL (8.6-10.3); Potassium 3.9 mEq/L (3.5-5.1)
[2021-01-22] MEDS: Lactobacillus 1 EACH CAP.SPRINK PO SCH (07:46)
[2021-01-22] MEDS: Magnesium Oxide 400 MG TABLET PO SCH (07:46)
[2021-01-22] MEDS: Aspirin 81 MG TAB.CHEW PO SCH (07:46)
[2021-01-22] MEDS: Sennosides/Docusate Sodium TABLET PO SCH ×2 (07:46→20:44)
[2021-01-22] MEDS: Acetaminophen 325 MG TABLET PO PRN (18:25)
[2021-01-23] MEDS: *HR* Enoxaparin 30 MG/0.3 ML SYRINGE SQ SCH (05:40)
[2021-01-23] MEDS: Lactobacillus 1 EACH CAP.SPRINK PO SCH (07:53)
[2021-01-23] MEDS: Aspirin 81 MG TAB.CHEW PO SCH (07:53)
[2021-01-23] MEDS: Sennosides/Docusate Sodium TABLET PO SCH ×2 (07:54→19:50)
[2021-01-23] MEDS: Magnesium Oxide 400 MG TABLET PO SCH (07:54)
[2021-01-23] MEDS: Acetaminophen 325 MG TABLET PO PRN (10:29)
[2021-01-23] MEDS ORDERED: *HR* LORazepam 0.5 MG TABLET PO ONE (20:24)
[2021-01-24] MEDS: *HR* Enoxaparin 30 MG/0.3 ML SYRINGE SQ SCH (05:58)
[2021-01-24 06:08] VITALS: BP 116/65; PULSE 85; RESP 18; TEMP 98.8; O2SAT 97
[2021-01-24] MEDS: Aspirin 81 MG TAB.CHEW PO SCH (08:42)
[2021-01-24] MEDS: Sennosides/Docusate Sodium TABLET PO SCH (08:43)
[2021-01-24] MEDS: Lactobacillus 1 EACH CAP.SPRINK PO SCH (08:43)
[2021-01-24] MEDS: Magnesium Oxide 400 MG TABLET PO SCH (08:43)
[2021-01-24] MEDS: Acetaminophen 325 MG TABLET PO PRN (16:03)
== END 2021-01-24 16:29 | disposition home or self-care (01) | DRG 690 ==
LOC: INPPIK 20:03
PROVIDERS: ADMIT Family Medicine; ATTEND Family Medicine

== ENCOUNTER 2021-03-10 21:52 | Inpatient (IN) ==
[2021-03-10] MEDS: *HR* LORazepam 0.5 MG TABLET PO PRN (23:32)
[2021-03-11 08:00] LABS: Basophils % 0.4 %; Eosinophils # 0.3 K/mcL (0.0-0.6); Eosinophils % 2.5 %; Hematocrit 28.1 % (35.3-44.9); Hemoglobin 8.8 g/dL (11.5-15.4); Immature Granulocytes % 0.8 % (0-4); Lymphocytes # 2.2 K/mcL (0.6-4.6); Lymphocytes % 19.6 %; Mean Corpuscular HGB Conc 31.3 g/dL (31.6-35.5); Mean Corpuscular Hemoglobin 28.7 pg (28.0-33.3); Mean Corpuscular Volume 91.5 fL (83.0-100.0); Mean Platelet Volume 9.2 fL (9.4-12.4); Monocytes # 0.6 K/mcL (0.0-1.3); Monocytes % 4.9 %; Neutrophils # 8.1 K/mcL (1.6-8.9); Platelet Count 145 K/mcL (140-400); Red Blood Count 3.07 M/mcL (3.82-4.97); Red Cell Distribution Width 14.4 % (11.5-14.5); Segmented Neutrophils % 71.8 %; White Blood Count 11.3 K/mcL (4.3-11.1)
[2021-03-11 08:02] LABS: Basophils # 0.1 K/mcL (0.0-0.2)
[2021-03-11 08:18] LABS: Calcium 8.2 mg/dL (8.6-10.3); Potassium 4.4 mEq/L (3.5-5.1)
[2021-03-11] MEDS ORDERED: NON-FORMULARY MEDICATION 1 EACH EACH (Cefepime Hcl/D5w [Cefepime-Dextrose 2 Gm/50 Ml] 2 GM IV SCH (09:00)
[2021-03-11] MEDS: *HR* HYDROcodone/Acet 5/325 mg TABLET PO PRN ×2 (09:04→15:10)
[2021-03-11] MEDS: Lactobacillus 1 EACH CAP.SPRINK PO SCH ×2 (09:04→20:02)
[2021-03-11] MEDS: *HR* LORazepam 0.5 MG TABLET PO PRN ×3 (09:04→23:01)
[2021-03-11] MEDS: Linezolid 600 MG TABLET PO SCH ×2 (09:04→20:02)
[2021-03-11] MEDS: TURMERIC 400 MG PO SCH (09:05)
[2021-03-11] MEDS: amLODIPine 5 MG TABLET PO SCH (09:05)
[2021-03-11] MEDS: Fluconazole 100 MG TABLET PO SCH (09:05)
[2021-03-11] MEDS: Cefepime HCl 2,000 MG in 0.9 % Sodium Chloride Mini Bag 100 ML IVPB SCH (09:16)
[2021-03-11] MEDS ORDERED: polyethylene glycoL 3350 17 GM POWD.PACK PO PRN (10:04)
[2021-03-11] MEDS: Sennosides/Docusate Sodium TABLET PO SCH ×2 (11:20→20:02)
[2021-03-11] MEDS: Acetaminophen 325 MG TABLET PO PRN (11:20)
[2021-03-12] MEDS: *HR* LORazepam 0.5 MG TABLET PO PRN (08:48)
[2021-03-12] MEDS: *HR* HYDROcodone/Acet 5/325 mg TABLET PO PRN (08:48)
[2021-03-12] MEDS: Linezolid 600 MG TABLET PO SCH ×2 (08:49→20:06)
[2021-03-12] MEDS: amLODIPine 5 MG TABLET PO SCH (08:49)
[2021-03-12] MEDS: Fluconazole 100 MG TABLET PO SCH (08:49)
[2021-03-12] MEDS: Sennosides/Docusate Sodium TABLET PO SCH ×2 (08:49→20:06)
[2021-03-12] MEDS: TURMERIC 400 MG PO SCH (08:49)
[2021-03-12] MEDS: Lactobacillus 1 EACH CAP.SPRINK PO SCH ×2 (08:49→20:06)
[2021-03-12] MEDS: Cefepime HCl 2,000 MG in 0.9 % Sodium Chloride Mini Bag 100 ML IVPB SCH (09:11)
[2021-03-12] MEDS: Mag Hydrox/Al Hydrox/Simeth 30 ML UDC PO PRN (13:15)
[2021-03-12] MEDS: Ondansetron ODT 4 MG TAB.RAPDIS SL PRN (16:49)
[2021-03-12] MEDS ORDERED: *HR* Promethazine 25 MG/ML VIAL IM ONE (17:27)
[2021-03-12] MEDS: *HR* Heparin 5,000 UNIT/ML VIAL SQ SCH (17:37)
[2021-03-12] MEDS: *HR* LORazepam 2 MG/ML VIAL IM PRN (19:58)
[2021-03-12] MEDS: 0.9 % Sodium Chloride 1,000 ML IVC SCH (20:12)
[2021-03-12] MEDS ORDERED: Tetracaine/Benzocaine/Butamben 1 SPRAY AEROSOL MM PRN (22:02)
[2021-03-13] MEDS: *HR* LORazepam 2 MG/ML VIAL IM PRN ×3 (00:20→11:54)
[2021-03-13] MEDS: *HR* Heparin 5,000 UNIT/ML VIAL SQ SCH ×2 (05:39→17:45)
[2021-03-13 09:10] LABS: Basophils # 0.1 K/mcL (0.0-0.2); Basophils % 0.6 %; Eosinophils # 0.2 K/mcL (0.0-0.6); Eosinophils % 1.9 %; Hematocrit 31.1 % (35.3-44.9); Hemoglobin 9.4 g/dL (11.5-15.4); Immature Granulocytes % 0.5 % (0-4); Lymphocytes # 1.8 K/mcL (0.6-4.6); Lymphocytes % 15.8 %; Mean Corpuscular HGB Conc 30.2 g/dL (31.6-35.5); Mean Corpuscular Hemoglobin 28.1 pg (28.0-33.3); Mean Corpuscular Volume 92.8 fL (83.0-100.0); Mean Platelet Volume 9.5 fL (9.4-12.4); Monocytes # 0.8 K/mcL (0.0-1.3); Monocytes % 7.4 %; Platelet Count 143 K/mcL (140-400); Red Blood Count 3.35 M/mcL (3.82-4.97); Red Cell Distribution Width 14.3 % (11.5-14.5); Segmented Neutrophils % 73.8 %; White Blood Count 11.3 K/mcL (4.3-11.1)
[2021-03-13 09:19] LABS: Neutrophils # 8.3 K/mcL (1.6-8.9)
[2021-03-13 09:26] LABS: Calcium 8.8 mg/dL (8.6-10.3)
[2021-03-13] MEDS: TURMERIC 400 MG PO SCH (10:29)
[2021-03-13] MEDS: Sennosides/Docusate Sodium TABLET PO SCH ×2 (10:30→20:41)
[2021-03-13] MEDS: amLODIPine 5 MG TABLET PO SCH (10:30)
[2021-03-13] MEDS: Lactobacillus 1 EACH CAP.SPRINK PO SCH ×2 (10:30→20:41)
[2021-03-13] MEDS: Fluconazole 100 MG TABLET PO SCH (10:42)
[2021-03-13] MEDS: Cefepime HCl 2,000 MG in 0.9 % Sodium Chloride Mini Bag 100 ML IVPB SCH (10:44)
[2021-03-13] MEDS: 0.9 % Sodium Chloride 1,000 ML IVC SCH (10:45)
[2021-03-13] MEDS: *HR* HYDROcodone/Acet 5/325 mg TABLET PO PRN (14:59)
[2021-03-14] MEDS: 0.9 % Sodium Chloride 1,000 ML IVC SCH (00:38)
[2021-03-14] MEDS: *HR* Heparin 5,000 UNIT/ML VIAL SQ SCH ×2 (05:45→17:51)
[2021-03-14] MEDS: *HR* HYDROcodone/Acet 5/325 mg TABLET PO PRN (09:42)
[2021-03-14] MEDS: amLODIPine 5 MG TABLET PO SCH (09:42)
[2021-03-14] MEDS: Lactobacillus 1 EACH CAP.SPRINK PO SCH ×2 (09:42→20:16)
[2021-03-14] MEDS: Sennosides/Docusate Sodium TABLET PO SCH ×2 (09:46→20:16)
[2021-03-14] MEDS: TURMERIC 400 MG PO SCH (09:46)
[2021-03-14] MEDS: Cefepime HCl 2,000 MG in 0.9 % Sodium Chloride Mini Bag 100 ML IVPB SCH (09:53)
[2021-03-14] MEDS: *HR* LORazepam 1 MG TABLET PO PRN (18:19)
[2021-03-14] MEDS: Acetaminophen 325 MG TABLET PO PRN (20:23)
[2021-03-14] MEDS: Ondansetron 4 MG/2 ML VIAL IVP PRN (20:27)
[2021-03-15] MEDS: Ondansetron ODT 4 MG TAB.RAPDIS SL PRN (00:17)
[2021-03-15] MEDS: *HR* LORazepam 1 MG TABLET PO PRN ×3 (00:17→20:32)
[2021-03-15] MEDS: 0.9 % Sodium Chloride 1,000 ML IVC SCH ×2 (02:03→13:41)
[2021-03-15] MEDS: *HR* Heparin 5,000 UNIT/ML VIAL SQ SCH ×2 (05:19→18:01)
[2021-03-15] MEDS: Sennosides/Docusate Sodium TABLET PO SCH ×2 (07:58→20:32)
[2021-03-15] MEDS: Cefepime HCl 2,000 MG in 0.9 % Sodium Chloride Mini Bag 100 ML IVPB SCH (07:58)
[2021-03-15] MEDS: Lactobacillus 1 EACH CAP.SPRINK PO SCH ×2 (07:58→20:32)
[2021-03-15] MEDS: amLODIPine 5 MG TABLET PO SCH (07:58)
[2021-03-15] MEDS: TURMERIC 400 MG PO SCH (07:59)
[2021-03-15 10:52] LABS: Magnesium 1.9 mg/dL (1.6-2.6)
[2021-03-16] MEDS: Ondansetron 4 MG/2 ML VIAL IVP PRN (02:04)
[2021-03-16] MEDS: *HR* LORazepam 1 MG TABLET PO PRN ×4 (03:38→23:43)
[2021-03-16] MEDS: *HR* Heparin 5,000 UNIT/ML VIAL SQ SCH ×2 (06:17→18:24)
[2021-03-16] MEDS: TURMERIC 400 MG PO SCH (08:27)
[2021-03-16] MEDS ORDERED: Ketorolac 30 MG/ML VIAL IVP ONE (08:43)
[2021-03-16] MEDS: amLODIPine 5 MG TABLET PO SCH (08:45)
[2021-03-16] MEDS: Sennosides/Docusate Sodium TABLET PO SCH ×2 (08:45→19:43)
[2021-03-16] MEDS: Cefepime HCl 2,000 MG in 0.9 % Sodium Chloride Mini Bag 100 ML IVPB SCH (08:46)
[2021-03-16] MEDS: Lactobacillus 1 EACH CAP.SPRINK PO SCH ×2 (08:46→19:43)
[2021-03-16] MEDS: Famotidine 20 MG TABLET PO SCH (09:43)
[2021-03-16] MEDS: Ondansetron ODT 4 MG TAB.RAPDIS SL PRN (09:58)
[2021-03-16] MEDS: Mag Hydrox/Al Hydrox/Simeth 30 ML UDC PO PRN (13:20)
[2021-03-16] MEDS ORDERED: Lactulose Oral Soln 20 GM/30 ML UDC PO ONE (13:48)
[2021-03-16] MEDS: Acetaminophen 325 MG TABLET PO PRN (19:44)
[2021-03-17] MEDS: *HR* Heparin 5,000 UNIT/ML VIAL SQ SCH ×2 (06:04→17:26)
[2021-03-17] MEDS: *HR* LORazepam 1 MG TABLET PO PRN ×4 (06:05→19:28)
[2021-03-17] MEDS: TURMERIC 400 MG PO SCH (08:30)
[2021-03-17] MEDS: Famotidine 20 MG TABLET PO SCH (08:49)
[2021-03-17] MEDS: Lactobacillus 1 EACH CAP.SPRINK PO SCH ×2 (08:49→19:27)
[2021-03-17] MEDS: amLODIPine 5 MG TABLET PO SCH (08:50)
[2021-03-17] MEDS: Sennosides/Docusate Sodium TABLET PO SCH ×2 (08:50→19:28)
[2021-03-17] MEDS: Cefepime HCl 2,000 MG in 0.9 % Sodium Chloride Mini Bag 100 ML IVPB SCH (08:51)
[2021-03-17 09:09] LABS: Hematocrit 30.1 % (35.3-44.9); Hemoglobin 9.4 g/dL (11.5-15.4); Mean Corpuscular HGB Conc 31.2 g/dL (31.6-35.5); Mean Corpuscular Volume 89.6 fL (83.0-100.0); Mean Platelet Volume 9.8 fL (9.4-12.4); Platelet Count 149 K/mcL (140-400); Red Blood Count 3.36 M/mcL (3.82-4.97); White Blood Count 7.2 K/mcL (4.3-11.1)
[2021-03-17 09:26] LABS: Calcium 9.5 mg/dL (8.6-10.3); Potassium 3.7 mEq/L (3.5-5.1)
[2021-03-17] MEDS: Mag Hydrox/Al Hydrox/Simeth 30 ML UDC PO PRN ×2 (11:02→21:12)
[2021-03-17] MEDS: Ondansetron ODT 4 MG TAB.RAPDIS SL PRN (17:26)
[2021-03-17] MEDS: Lactulose Oral Soln 20 GM/30 ML UDC PO SCH (21:12)
[2021-03-18] MEDS: *HR* LORazepam 1 MG TABLET PO PRN ×4 (00:13→19:02)
[2021-03-18] MEDS: Ondansetron ODT 4 MG TAB.RAPDIS SL PRN ×3 (00:14→20:50)
[2021-03-18] MEDS: *HR* Heparin 5,000 UNIT/ML VIAL SQ SCH ×2 (05:47→18:38)
[2021-03-18] MEDS: Cefepime HCl 2,000 MG in 0.9 % Sodium Chloride Mini Bag 100 ML IVPB SCH (10:23)
[2021-03-18] MEDS: TURMERIC 400 MG PO SCH (10:24)
[2021-03-18] MEDS: amLODIPine 5 MG TABLET PO SCH (10:24)
[2021-03-18] MEDS: Lactobacillus 1 EACH CAP.SPRINK PO SCH ×2 (10:24→20:44)
[2021-03-18] MEDS: Famotidine 20 MG TABLET PO SCH (10:24)
[2021-03-18] MEDS: Sennosides/Docusate Sodium TABLET PO SCH ×2 (10:24→20:44)
[2021-03-18] MEDS: Ondansetron 4 MG/2 ML VIAL IVP PRN (19:02)
[2021-03-18] MEDS: Lactulose Oral Soln 20 GM/30 ML UDC PO SCH (20:44)
[2021-03-19] MEDS: *HR* LORazepam 1 MG TABLET PO PRN ×3 (05:46→20:22)
[2021-03-19] MEDS: *HR* Heparin 5,000 UNIT/ML VIAL SQ SCH ×2 (05:46→17:37)
[2021-03-19] MEDS: Cefepime HCl 2,000 MG in 0.9 % Sodium Chloride Mini Bag 100 ML IVPB SCH (08:37)
[2021-03-19] MEDS: Ondansetron 4 MG/2 ML VIAL IVP PRN ×2 (08:37→09:43)
[2021-03-19] MEDS: Sennosides/Docusate Sodium TABLET PO SCH ×2 (10:30→20:22)
[2021-03-19] MEDS: Lactobacillus 1 EACH CAP.SPRINK PO SCH ×2 (10:55→20:22)
[2021-03-19] MEDS: amLODIPine 5 MG TABLET PO SCH (10:56)
[2021-03-19] MEDS: Famotidine 20 MG TABLET PO SCH (10:56)
[2021-03-19] MEDS: TURMERIC 400 MG PO SCH (10:56)
[2021-03-19] MEDS ORDERED: 0.9 % Sodium Chloride 1,000 ML IVC SCH (17:00)
[2021-03-19] MEDS: Lactulose Oral Soln 20 GM/30 ML UDC PO SCH (20:22)
[2021-03-20] MEDS: *HR* LORazepam 1 MG TABLET PO PRN ×3 (00:49→16:03)
[2021-03-20] MEDS: Mag Hydrox/Al Hydrox/Simeth 30 ML UDC PO PRN ×2 (01:29→09:10)
[2021-03-20] MEDS: *HR* Heparin 5,000 UNIT/ML VIAL SQ SCH ×2 (06:18→17:56)
[2021-03-20] MEDS: amLODIPine 5 MG TABLET PO SCH (09:09)
[2021-03-20] MEDS: Famotidine 20 MG TABLET PO SCH (09:09)
[2021-03-20] MEDS: Sennosides/Docusate Sodium TABLET PO SCH ×2 (09:10→20:44)
[2021-03-20] MEDS: Lactobacillus 1 EACH CAP.SPRINK PO SCH ×2 (09:10→20:44)
[2021-03-20] MEDS: TURMERIC 400 MG PO SCH (09:24)
[2021-03-20 10:14] LABS: Basophils # 0.1 K/mcL (0.0-0.2); Basophils % 1.2 %; Eosinophils # 0.3 K/mcL (0.0-0.6); Eosinophils % 3.1 %; Hematocrit 29.8 % (35.3-44.9); Hemoglobin 9.1 g/dL (11.5-15.4); Immature Granulocytes % 0.5 % (0-4); Lymphocytes # 2.8 K/mcL (0.6-4.6); Lymphocytes % 33.5 %; Mean Corpuscular HGB Conc 30.5 g/dL (31.6-35.5); Mean Corpuscular Hemoglobin 27.9 pg (28.0-33.3); Mean Corpuscular Volume 91.4 fL (83.0-100.0); Mean Platelet Volume 10.8 fL (9.4-12.4); Monocytes # 0.5 K/mcL (0.0-1.3); Monocytes % 5.8 %; Neutrophils # 4.8 K/mcL (1.6-8.9); Platelet Count 157 K/mcL (140-400); Red Blood Count 3.26 M/mcL (3.82-4.97); Red Cell Distribution Width 14.1 % (11.5-14.5); Segmented Neutrophils % 55.9 %; White Blood Count 8.5 K/mcL (4.3-11.1)
[2021-03-20 10:29] LABS: Calcium 8.6 mg/dL (8.6-10.3); Magnesium 2.3 mg/dL (1.6-2.6); Potassium 3.4 mEq/L (3.5-5.1)
[2021-03-20 12:26] LABS: Bilirubin,Urine Negative (Negative); Blood,Urine Large (Negative); Clarity,Urine Cloudy (Clear); Color,Urine Red (Yellow); Glucose,Urine (UA) Normal (Normal); Ketones,Urine Negative (Negative); Leukocyte Esterase,Urine Large (Negative); Nitrite,Urine Negative (Negative); Protein,Urine >=300 mg/dL (Neg-Trace); Urobilinogen,Urine Normal (Normal)
[2021-03-20 12:34] LABS: RBC,Urine TNTC per hpf (0-3); WBC,Urine TNTC per hpf (0-3)
[2021-03-20 12:36] LABS: Amorphous Sediment,Urine Present per hpf (None-Few); Bacteria,Urine Present per hpf (None-Few)
[2021-03-20] MEDS: 0.9 % Sodium Chloride 1,000 ML IVC SCH ×2 (12:40→21:00)
[2021-03-20] MEDS: Ondansetron ODT 4 MG TAB.RAPDIS SL PRN (16:04)
[2021-03-20] MEDS ORDERED: *HR* Promethazine 25 MG/ML VIAL IM ONE (16:29)
[2021-03-20] MEDS ORDERED: Isovue-370 500 ML BOTTLE PO ONE (17:36)
[2021-03-20 18:58] VITALS: BP 119/70; PULSE 89; RESP 14; TEMP 98.1; O2SAT 97
[2021-03-20] MEDS: Lactulose Oral Soln 20 GM/30 ML UDC PO SCH (20:44)
[2021-03-20] MEDS: Ondansetron 4 MG/2 ML VIAL IVP PRN ×2 (20:45→23:48)
[2021-03-20] MEDS: *HR* LORazepam 2 MG/ML VIAL IVP PRN ×2 (20:45→23:49)
[2021-03-21] MEDS: *HR* LORazepam 2 MG/ML VIAL IVP PRN (00:40)
== END 2021-03-21 00:50 | disposition short-term general hospital (02) | DRG 690 ==
LOC: INPPIK 21:55
PROVIDERS: ADMIT Family Medicine; ATTEND Family Medicine